=== PATIENT | female | born 1965 | race Caucasian/White ===

== ENCOUNTER 2017-10-17 19:54 | Emergency (ER) | payer BC, SELFPAY ==
[2017-10-17 20:30] VITALS: BP 154/85; PULSE 80; RESP 20; TEMP 36.8; O2SAT 96; BMI 39.5
--- NOTE | 2017-10-17 20:35 | HMH.EDUTC ---
[facility] Disposition Clinical Impression: Upper respiratory infection Qualifiers: URI type: unspecified URI Qualified Code(s): J06.9 - Acute upper respiratory infection, unspecified Disposition: Home, Self-Care Condition on Discharge: Good Instructions: Cough, DI for Nasal Congestion, DI for Sinusitis, Sinus Headache Additional Instructions: * Monitor Temp. Tylenol and/or Ibuprofen as needed. ER if fever is no less than 101 despite alternating Tylenol and Ibuprofen * Encourage fluids, water, Gatorade, powerade, pedialyte if /toddler/or child * Warm salt water gargles for throat irritation *Warm fluids *Sore throat lozenges *Sleep elevated *humidifier or vaporizer Lots of rest Increase fluids, water, Gatorade, powerade Follow up IMMEDIATELY for new or worsening of symptoms OR no noticeable improvement over the next 48-72 hours. 911 immediately for any life threatening symptoms such as chest pain or difficulty breathing Prescriptions: Brompheniramine/Pseudoephed/Dm [Bromfed DM Cough Syrup 5mL] 10 ml PO Q4H PRN #200 syrup PRN Reason: Cough Referrals: Provider,Referral, MD [Primary Care Provider] - Time of Disposition: 20:52 Medical Decision Making Vital Signs: 10/17/17 20:30 Temperature 98.2 F Temperature Source Temporal Artery Scan Pulse Rate [Right] 80 Respiratory Rate 20 Blood Pressure [Right Arm] 154/85 Blood Pressure Mean [Right Arm] 108 Blood Pressure Source [Right Arm] Automatic Cuff Blood Pressure Position [Right Arm] Sitting 02 Sat by Pulse Oximetry 96 Oxygen Delivery Method Room Air - Aniceto Inquiry Pt receiving controlled substance: No Aniceto was queried for this patient: No [facility] HPI - General Stated complaint: Cough, ZIMMERMAN, achey Mode of Arrival: Ambulatory Source of Information: Patient Limitations: No Limitations Description of Symptoms (Recalled from Triage Doc. 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 State that she thought she may be getting sick about a week or so ago with sinus infection but then symptoms went away and now they are back States that she has been having tenderness and pain under her eyes and feels like her teeth ache at times - Related Data Home Medications Medication Instructions Recorded Confirmed Pantoprazole Sodium [Pantoprazole 20 mg PO DAILY 10/17/17 10/17/17 20mg Tab] Previous Rx's Medication Instructions Recorded Brompheniramine/Pseudoephed/Dm 10 ml PO Q4H PRN #200 syrup 10/17/17 [Bromfed DM Cough Syrup 5mL] Allergies Allergy/AdvReac Type Severity Reaction Status Date / Time MORPHINE AdvReac Unknown MAKES ME Uncoded 10/17/17 20:36 CRAZY - Worker's Comp Is this a Worker's Comp case?: No [facility] History I have reviewed the patient's past medical history: Yes - *Social History Smoking Status: Current every day smoker Tobacco Type: cigarettes Alcohol Intake: never - Psychiatric History Expresses thoughts of harming self/others: None Suicide Plan Description: No Plan ROS Obtained: Yes All systems reviewed & no additional complaints Physical Exam - General General appearance: alert, in no apparent distress - Expanded ENT Exam Nose exam: Present: sinus tenderness Nasal speculum exam: Bilateral: other (Pain maxillary sinus with pressure feeling behind eyes) Comment: Throat red, irritated drainage noted in back of throat - Chest Chest inspection: Present: normal inspection, symmetric chest wall rise. Absent:
[2017-10-17 20:43] LABS: UTC Influenza A Antigen Negative (Negative); UTC Influenza B Antigen Negative (Negative)
--- NOTE | 2017-10-17 20:44 | ED_ITS ---
[facility] [place] Clinical Impression: Upper respiratory infection Qualifiers: URI type: unspecified URI Qualified Code(s): J06.9 - Acute upper respiratory infection, unspecified Disposition: Home, Self-Care Condition on Discharge: Good Instructions: Cough, DI for Nasal Congestion, DI for Sinusitis, Sinus Headache Additional Instructions: * Monitor Temp. Tylenol and/or Ibuprofen as needed. ER if fever is no less than 101 despite alternating Tylenol and Ibuprofen * Encourage fluids, water, Gatorade, powerade, pedialyte if /toddler/or child * Warm salt water gargles for throat irritation *Warm fluids *Sore throat lozenges *Sleep elevated *humidifier or vaporizer Lots of rest Increase fluids, water, Gatorade, powerade Follow up IMMEDIATELY for new or worsening of symptoms OR no noticeable improvement over the next 48-72 hours. 911 immediately for any life threatening symptoms such as chest pain or difficulty breathing Prescriptions: Brompheniramine/Pseudoephed/Dm [Bromfed DM Cough Syrup 5mL] 10 ml PO Q4H PRN # 200 syrup PRN Reason: Cough Referrals: Provider,Referral, MD [Primary Care Provider] - Time of Disposition: 20:52 Medical Decision Making Vital Signs: 10/17/17 20:30 Temperature 98.2 F Temperature Source Temporal Artery Scan Pulse Rate [Right] 80 Respiratory Rate 20 Blood Pressure [Right Arm] 154/85 Blood Pressure Mean [Right Arm] 108 Blood Pressure Source [Right Arm] Automatic Cuff Blood Pressure Position [Right Arm] Sitting 02 Sat by Pulse Oximetry 96 Oxygen Delivery Method Room Air - Aniceto Inquiry Pt receiving controlled substance: No Aniceto was queried for this patient: No [facility] HPI - General Stated complaint: Cough, ZIMMERMAN, achey Mode of Arrival: Ambulatory Source of Information: Patient Limitations: No Limitations Description of Symptoms (Recalled from Triage Doc. 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 State that she thought she may be getting sick about a week or so ago with sinus infection but then symptoms went away and now they are back States that she has been having tenderness and pain under her eyes and feels like her teeth ache at times - Related Data Home Medications Medication Instructions Recorded Confirmed Pantoprazole Sodium [Pantoprazole 20 mg PO DAILY 10/17/17 10/17/17 20mg Tab] Previous Rx's Medication Instructions Recorded Brompheniramine/Pseudoephed/Dm 10 ml PO Q4H PRN #200 syrup 10/17/17 [Bromfed DM Cough Syrup 5mL] Allergies Allergy/AdvReac Type Severity Reaction Status Date / Time MORPHINE AdvReac Unknown MAKES ME Uncoded 10/17/17 20:36 CRAZY - Worker's Comp Is this a Worker's Comp case?: No [facility] History I have reviewed the patient's past medical history: Yes - *Social History Smoking Status: Current every day sm
== END 2017-10-17 21:01 | disposition home or self-care (01) ==
PROVIDERS: Emergency Provider Nurse Practitioner
DX: J06.9 Acute upper respiratory infection, unspecified (principal); F17.210 Nicotine dependence, cigarettes, uncomplicated
CPT/HCPCS: 87804; 96372; 99202

== ENCOUNTER → 2018-07-04 13:21 | Outpatient (REF) | payer BC, SELFPAY ==
[2018-07-04 19:39] LABS: Basophils # 0.1 K/mm3 (0-0.2); Basophils % 0.7 % (0.1-2.0); Eosinophils # 0.3 K/mm3 (0.0-0.4); Eosinophils % 2.9 % (0.1-12.0); Hematocrit 43.6 % (37.0-47.0); Hemoglobin 14.2 g/dL (12.2-16.2); Lymphocytes # 1.6 K/mm3 (0.7-4.5); Lymphocytes % 18.2 K/mm3 (10-50); Mean Corpuscular HGB Conc 32.6 g/dL (31.8-35.4); Mean Corpuscular Hemoglobin 29.6 pg (27.0-31.2); Mean Corpuscular Volume 90.9 fl (81-99); Mean Platelet Volume 7.9 fl (7.4-10.4); Monocytes # 0.5 K/mm3 (0.1-1.0); Monocytes % 5.7 % (1.7-9.3); Neutrophils # 6.3 K/mm3 (1.8-7.8); Neutrophils % 72.6 % (37.0-80.0); Platelet Count 264 K/mm3 (142-424); Red Cell Distribution Width 13.3 % (11.5-17.5); White Blood Count 8.6 K/mm3 (4.8-10.8)
[2018-07-04 20:03] LABS: Alanine Aminotransferase 33 U/L (12-78); Albumin Level 3.8 gm/dL (3.4-5.0); Albumin/Globulin Ratio 1.1 (1.1-1.8); Alkaline Phosphatase 105 U/L (46-116); Anion Gap 4.7 mEq/L (5-15); Aspartate Amino Transferase 18 U/L (15-37); Bilirubin,Total 0.2 mg/dL (0.2-1.0); Blood Urea Nitrogen 12 mg/dL (7-18); Carbon Dioxide 29 mmol/L (21.0-32.0); Chloride 102 mmol/L (98-107); Chol/HDL Ratio 5.3 (1-3.5); Cholesterol 249 mg/dL (140-200); Creatinine,Serum 0.82 mg/dL (0.55-1.02); Estimated Glomerular Filt Rate 73 ml/min (>60); GFR (African American) 89 ML/MIN (>60); Globulin 3.4 gm/dl (1.3-3.2); Glucose 90 mg/dL (74-106); HDL Cholesterol 47 mg/dL (29-89); LDL Cholesterol 169 mg/dL (0-130); Potassium 3.7 mmoL/L (3.5-5.1); Sodium 132 mmol/L (136-145); T4 (Thyroxine) 9.2 ug/dl (4.7-13.3); Thyroid Stimulating Hormone 1.19 uIU/ml (0.358-3.740); Total Protein,Serum 7.2 gm/dL (6.4-8.2); Triglycerides 167 mg/dL (30-200); VLDL Cholesterol 33 mg/dL (0-40)
[2018-07-04 20:19] LABS: Hemoglobin A1C 5.6 % (0.0-7.0)
[2018-07-06 12:35] LABS: Vitamin D 25 Hydroxy 26.1 ng/mL (30.0-100.0)
== END ==
LOC: LAB 13:21
PROVIDERS: Visit Provider Physician Assistant
DX: R73.9 Hyperglycemia, unspecified (principal)
CPT/HCPCS: 80053; 80061; 82652; 83036; 84436; 84443; 85025

== ENCOUNTER → 2020-07-27 15:19 | Outpatient (CLI) | payer BC, SELFPAY ==
[2020-07-28 03:12] LABS: Adenovirus,PCR Not Detected (NotDetected); Bordetella Pertussis Not Detected (NotDetected); Chlamydophila Pneumoniae, PCR Not Detected (NotDetected); Coronavirus 19, PCR Not Detected (NotDetected); Coronavirus 229E Not Detected (NotDetected); Coronavirus NL63 Not Detected (NotDetected); Coronavirus OC43 Not Detected (NotDetected); Coronovirus HKU1,PCR Not Detected (NotDetected); Human Metapneumovirus Not Detected (NotDetected); Influenza A, PCR Not Detected (NotDetected); Influenza AH1, 2009 Not Detected (NotDetected); Influenza AH1, PCR Not Detected (NotDetected); Influenza AH3,PCR Not Detected (NotDetected); Influenza B, PCR Not Detected (NotDetected); Mycoplasma Pneumoniae, PCR Not Detected (NotDetected); Parainfluenza 1, PCR Not Detected (NotDetected); Parainfluenza 2, PCR Not Detected (NotDetected); Parainfluenza 3, PCR Not Detected (NotDetected); Parainfluenza 4, PCR Not Detected (NotDetected); Respiratory Syncytial Virus Not Detected (NotDetected); Rhinovirus/Enterovirus Not Detected (NotDetected)
== END ==
PROVIDERS: PCP Physician Assistant; Visit Provider Physician Assistant
DX: Z03.818 Encounter for observation for suspected exposure to other biological agents ruled out (principal)
CPT/HCPCS: 87581; 87633; 87798; U0003; U0004

== ENCOUNTER → 2020-10-21 13:22 | Outpatient (CLI) | payer BC, SELFPAY ==
--- NOTE | 2020-10-21 13:22 | MM_ITS ---
PROCEDURE: MM DIG SCREENING MAMM BI W/CAD Digital Breast Tomosynthesis Included CLINICAL INDICATION: Breast cancer screening There is no personal or family history of breast cancer. COMPARISON: Sign screening exam, patient without complaints TECHNIQUE: Standard CC and MLO images and 3D Tomosynthesis was obtained. R2 CAD reviewed. FINDINGS: The breasts are composed primarily of fat with minimal scattered fibroglandular densities throughout each breast. There is a benign-appearing calcification in each breast. There is no suspicious lesion and no suspicious microcalcifications. IMPRESSION: Fatty type breast parenchyma with no suspicious lesions seen BI-RAD Category: 2 Benign Finding(s) FOLLOW-UP: 1YR 1 Year Follow-up (A letter has been sent to the patient regarding results of the study.) Dictated by: Dr. Julito Abdul MD 10/30/2020 07:34 Dr. Julito Abdul MD in [place] 10/30/2020 07:34
--- NOTE | 2020-10-21 13:22 | US_ITS ---
PROCEDURE: US EXTREMITY LT LIMITED CLINICAL INDICATION: Mass left elbow COMPARISON: No exams were available for comparison FINDINGS: Ultrasound of the left elbow performed in the area palpable concern. No soft tissue mass or cystic collection evident. MRI may provide further evaluation if clinically warranted. IMPRESSION: Unremarkable ultrasound the left elbow Dictated by: John Chu MD 10/22/2020 07:16 John Chu MD in [facility] 10/22/2020 07:16
== END ==
PROVIDERS: PCP Physician Assistant; Visit Provider Physician Assistant
DX: Z12.31 Encounter for screening mammogram for malignant neoplasm of breast (principal); R22.32 Localized swelling, mass and lump, left upper limb
CPT/HCPCS: 76882; 77063; 77067

== ENCOUNTER 2020-12-21 11:00 | Outpatient (RCR) | payer BC, SELFPAY | END 2020-12-21 11:05 | disposition home or self-care (01) | LOC: OT 11:00 | PROVIDERS: PCP Physician Assistant; Visit Provider Physician Assistant | DX: M77.12 Lateral epicondylitis, left elbow (principal) | CPT/HCPCS: 97014; 97035; 97110; 97140; 97165; G0283 ==

== ENCOUNTER 2022-06-05 10:58 | Emergency (ER) | payer BC, SELFPAY ==
[2022-06-05 11:02] VITALS: BP 161/73; PULSE 79; RESP 20; TEMP 36.8; O2SAT 98; BMI 38.0
--- NOTE | 2022-06-05 11:16 | PC.NURSE ---
pt ambulating to the restroom for urine sample
[2022-06-05 11:27] VITALS: BP 114/74; PULSE 78; O2SAT 97
[2022-06-05 11:33] VITALS: BMI 38.0
--- NOTE | 2022-06-05 11:34 | CT_ITS ---
PROCEDURE INFORMATION: Exam: CT Abdomen And Pelvis Without Contrast Exam date and time: 06/05/2022 11:46 AM Age: 57 years old Clinical indication: Abdominal pain; Flank; Right lower quadrant (rlq); Additional info: R flank pain , stone protocol TECHNIQUE: Imaging protocol: Computed tomography of the abdomen and pelvis without contrast. Radiation optimization: All CT scans at this facility use at least one of these dose optimization techniques: automated exposure control; mA and/or kV adjustment per patient size (includes targeted exams where dose is matched to clinical indication); or iterative reconstruction. COMPARISON: US EXTREMITY LT LIMITED 10/21/2020 1:47 PM FINDINGS: Liver: Normal. No mass. Gallbladder and bile ducts: Cholecystectomy. Pancreas: Normal. No ductal dilation. Spleen: Calcified splenic granulomas. Adrenal glands: Normal. No mass. Kidneys and ureters: Horseshoe kidney. No hydronephrosis. No nephroureterolithiasis. Stomach and bowel: Unremarkable. No obstruction. No mucosal thickening. Appendix: No evidence of appendicitis. Intraperitoneal space: Unremarkable. No free air. No significant fluid collection. Vasculature: Unremarkable. No abdominal aortic aneurysm. Lymph nodes: Unremarkable. No enlarged lymph nodes. Urinary bladder: Unremarkable as visualized. Reproductive: Query a Bartholin gland cyst versus Monson gland cyst along the right aspect of the perineum. Bones/joints: Unremarkable. No acute fracture. Soft tissues: Unremarkable. IMPRESSION: No acute findings.
--- NOTE | 2022-06-05 11:37 | HMH.EDGENADL ---
Discharge Plan Disposition Patient Disposition: Home, Self-Care Condition: Good Chief Complaint: Back Pain/Injury Prescriptions Prescriptions: New ibuprofen 800 mg tablet 800 mg PO Q8HP PRN (Reason: moderate pain ) Qty: 15 0RF methocarbamol 750 mg tablet 750 mg PO Q6H Qty: 20 0RF prednisone 20 mg tablet 20 mg PO BID Qty: 10 0RF No Action pantoprazole 40 mg tablet,delayed release (DR/EC) 40 mg PO Label Comments: TAKE ONE TABLET BY MOUTH EVERY DAY 30 minutes BEFORE breakfast amoxicillin 875 mg tablet 875 mg PO BID Qty: 20 0RF prednisone 20 mg tablet 20 mg PO BID Qty: 10 0RF Rx Instructions: administer with food or milk Paxlovid (EUA) 300 mg (150 mg x 2)-100 mg tablet See Rx Instructions PO .COMPLEX Qty: 30 0RF Rx Instructions: take TWO 150 mg tablets of nirmatrelvir with ONE 100 mg tablet of ritonavir twice daily for 5 days PO Referrals Follow up/Referrals: Susan Poole PA [Primary Care Provider] - See instructions Activity Restrictions/Add. Instructions Additional Instructions/Restrictions: Additional instructions for BACK PAIN: See your physician as soon as possible for further evaluation. Return immediately if back pain becomes intolerable, or if fever, numbness or weakness of your legs, loss of control of your bowels or bladder. Clinical Impressions Clinical Impression: Low back pain Instructions Patient Instructions: DI for Low Back Pain Discharge ED Provider: Evan Dietrich General Adult HPI General Chief complaint: Back Pain/Injury Stated complaint: back pain, unknown origin Time Seen by Provider: 06/05/22 11:36 History of Present Illness HPI narrative: Complains of severe right lower back pain, onset this morning. Says that she can hardly get out of bed this morning. She was able to get up and make it to religion but pain got worse at that time associated with nausea. She had not had any urinary symptoms before coming to the emergency department, but states when she provided a urine sample here it was dark and it burned a little. The pain we does radiate into her abdomen. No radiation down the legs. No numbness or weakness. She states she does have some chronic back problems, and sees a chiropractor. Related Data Home Medications Medication Instructions Recorded Confirmed pantoprazole 40 mg tablet,delayed 40 mg PO 12/16/21 12/16/21 release Previous Rx's Medication Instructions Recorded amoxicillin 875 mg tablet 875 mg PO BID #20 tabs 12/16/21 prednisone 20 mg tablet 20 mg PO BID #10 tabs 12/16/21 nirmatrelvir 300 mg (150 mg x See Rx Instructions PO .COMPLEX 05/02/22 2)-ritonavir 100 mg tablet (EUA) #30 tabs (Paxlovid 300 mg () ibuprofen 800 mg tablet 800 mg PO Q8HP PRN moderate pain 06/05/22 #15 tabs methocarbamol 750 mg tablet 750 mg PO Q6H #20 tabs 06/05/22 prednisone 20 mg tablet 20 mg PO BID #10 tabs 06/05/22 Allergies Allergy/AdvReac Type Severity Reaction Status Date / Time MORPHINE AdvReac Unknown MAKES ME Uncoded 12/16/21 13:05 [facility] Medical History (Updated 06/05/22 @ 13:01 by Evan Dietrich MD) Abnormal weight Body mass index (BMI) of 40.1 to 44.9 in adult Nicotine dependence Obesity Social History Smoking Status: Current every day smoker tobacco type: cigarettes packs per day: 1 alcohol intake: current substance use type: denies use current occupational status: employed Travel in the last 8 weeks: None household members: spouse ROS Obtained: Yes Systems reviewed as appropriate & no additional complaints except as documented Constitutional Constitutional: Denies fever(s) and Denies weakness Cardiovascular Cardiovascular: Denies chest pain Respiratory Respiratory: Denies shortness of breath Gastrointestinal Gastrointestingal: Reports as per HPI and nausea Genitourinary Female Genitourinary: Reports as per HPI and Reports dysuria Muscul
--- NOTE | 2022-06-05 11:39 | PC.NURSE ---
DR BISHOP AT
--- NOTE | 2022-06-05 11:41 | CT_ITS ---
PROCEDURE INFORMATION: Exam: CT Lumbar Spine Without Contrast Exam date and time: 06/05/2022 11:49 AM Age: 57 years old Clinical indication: Low back pain and sciatica; Right TECHNIQUE: Imaging protocol: Computed tomography of the lumbar spine without contrast. Radiation optimization: All CT scans at this facility use at least one of these dose optimization techniques: automated exposure control; mA and/or kV adjustment per patient size (includes targeted exams where dose is matched to clinical indication); or iterative reconstruction. COMPARISON: CT ABDOMEN PELVIS WO CON 06/05/2022 11:46 AM FINDINGS: Bones/joints: No acute fracture or malalignment. There appears to be at least mild spinal canal stenosis at L4-L5. Mild to moderate bilateral neural foraminal stenosis at L4. Moderate to severe bilateral neural foraminal stenosis at L5-S1, right greater than left. Soft tissues: Unremarkable. IMPRESSION: 1. No acute fracture or malalignment. 2. Degenerative changes as detailed above.
[2022-06-05 11:51] LABS: Basophils # 0.2 K/mm3 (0-0.2); Basophils % 1.4 % (0.1-2.0); Eosinophils # 0.2 K/mm3 (0.0-0.4); Eosinophils % 1.9 % (0.1-12.0); Hematocrit 46.2 % (37.0-47.0); Hemoglobin 14.8 g/dL (12.2-16.2); Lymphocytes # 3.1 K/mm3 (0.7-4.5); Lymphocytes % 28.1 % (10-50); Mean Corpuscular Hemoglobin 30.2 pg (27.0-31.2); Mean Corpuscular Volume 94.5 fl (81-99); Mean Platelet Volume 8.2 fl (7.4-10.4); Microscopic, Urine URINE MICROSCOPIC (MICROSCOPIC); Monocytes # 0.7 K/mm3 (0.1-1.0); Neutrophils # 6.8 K/mm3 (1.8-7.8); Neutrophils % 62.7 % (37.0-80.0); Platelet Count 289 K/mm3 (142-424); Red Blood Count 4.89 M/mm3 (4.20-5.40); Red Cell Distribution Width 13.6 % (11.5-17.5); White Blood Count 10.9 K/mm3 (4.8-10.8)
[2022-06-05 11:55] LABS: Alanine Aminotransferase 24 U/L (12-78); Albumin Level 4.1 g/dl (3.5-5.0); Albumin/Globulin Ratio 1.2 (1.1-1.8); Alkaline Phosphatase 113 U/L (38-126); Anion Gap 7.5 mEq/L (5-15); Aspartate Amino Transferase 30 U/L (14-36); Blood Urea Nitrogen 10 mg/dl (7-17); Calcium 9.6 mg/dl (8.4-10.2); Carbon Dioxide 29 mmol/L (22.0-30.0); Chloride 106 mmol/L (98-107); Creatinine Clearance Estimated 141 mL/min (50-200); Estimated Glomerular Filt Rate 74 ml/min (>60); GFR (African American) 90 ML/MIN (>60); Globulin 3.3 g/dL (1.3-3.2); Glucose 97 mg/dl (74-100); Potassium 4.5 mmoL/L (3.5-5.1); Sodium 138 mmol/L (136-145); Total Protein,Serum 7.4 g/dl (6.3-8.2)
[2022-06-05 11:56] LABS: Appearance,Urine CLEAR (Clear); Bilirubin,Urine Negative (Negative); Blood, Urine Negative (Negative); Color,Urine YELLOW (Yellow); Glucose,Urine (UA) Negative (Negative); Ketones,Urine Negative (Negative); Leukocyte Esterase,Urine TRACE (Negative); Nitrate,Urine Negative (Negative); Protein,Urine Negative (Negative); Specific Gravity, Urine 1.025 (1.005-1.030); Urobilinogen,Urine 0.2 EU/dl (0.2)
--- NOTE | 2022-06-05 12:00 | PC.NURSE ---
PT BACK FROM CT
[2022-06-05 12:01] LABS: Bilirubin,Total < 0.1 mg/dl (0.2-1.3)
--- NOTE | 2022-06-05 12:03 | PC.NURSE ---
PAIN MUCH BETTER
[2022-06-05 12:19] LABS: Bacteria,Urine Trace /lpf; Squamous Epithelial Cell,Urine Occasional #/hpf (0-5); WBC,Urine Occasional #/hpf (0-3)
[2022-06-05 12:30] VITALS: BP 111/58; PULSE 74; O2SAT 95
[2022-06-05 13:10] VITALS: BP 122/62; PULSE 75; RESP 18; TEMP 36.8; O2SAT 99
== END 2022-06-05 13:10 | disposition home or self-care (01) ==
PROVIDERS: Emergency Provider Emergency Medicine; PCP Physician Assistant
DX: M54.50 Low back pain, unspecified (principal); R10.31 Right lower quadrant pain; R06.02 Shortness of breath; J91.8 Pleural effusion in other conditions classified elsewhere; R11.0 Nausea; G89.29 Other chronic pain; M85.80 Other specified disorders of bone density and structure, unspecified site; Q63.1 Lobulated, fused and horseshoe kidney; F17.210 Nicotine dependence, cigarettes, uncomplicated; E66.9 Obesity, unspecified; Z79.1 Long term (current) use of non-steroidal anti-inflammatories (NSAID); Z79.52 Long term (current) use of systemic steroids; Z79.899 Other long term (current) drug therapy; Z88.0 Allergy status to penicillin; Z68.41 Body mass index [BMI] 40.0-44.9, adult
CPT/HCPCS: 72131; 74176; 80053; 81001; 85025; 96361; 96374; 96375; 96376; 99285; J2405

== ENCOUNTER → 2022-07-26 11:44 | Outpatient (CLI) | payer BC, SELFPAY | PROVIDERS: PCP Physician Assistant; Visit Provider Physician Assistant | DX: J32.9 Chronic sinusitis, unspecified (principal); J06.9 Acute upper respiratory infection, unspecified; R52 Pain, unspecified | CPT/HCPCS: C9803; U0003; U0005 ==

== ENCOUNTER 2023-04-17 23:49 | Inpatient (IN) | payer BC, SELFPAY ==
[2023-04-17 23:50] VITALS: BP 142/87; PULSE 97; RESP 21; TEMP 36.7; O2SAT 97; BMI 38.0
--- NOTE | 2023-04-17 23:52 | ECG_ITS ---
APPROVED REPORT Exam: Resting ECG HR:78 bpm ECG Measurements Heart Rate 78 AXES MD 171 P 73 QRSd 97 QRS 81 QT 368 T 80 QTc 401 Conclusion SINUS RHYTHM WITH OCCASIONAL VENTRICULAR PREMATURE COMPLEXES MODERATE ST DEPRESSION [0.05+ mV ST DEPRESSION] ABNORMAL ECG UNCONFIRMED REPORT Electronically signed by : Eduard Otero MD 04/18/2023 07:53:45
[2023-04-17 23:54] VITALS: BMI 38.0
--- NOTE | 2023-04-17 23:56 | PC.NURSE ---
fred on phone with girma
--- NOTE | 2023-04-17 23:57 | PC.NURSE ---
STEMI Alert Activated
[2023-04-18] VITALS (22 sets, daily range): BP systolic 109–158; BP diastolic 62–94; PULSE 60–98; RESP 16–20; TEMP 36.6–36.7; O2SAT 92–100; BMI 40.9
--- NOTE | 2023-04-18 | PC.NURSE ---
SPOKE WITH [facility] AND GAIL.
--- NOTE | 2023-04-18 | XR_ITS ---
PROCEDURE INFORMATION: Exam: XR Chest Exam date and time: 04/17/2023 11:58 PM Age: 57 years old Clinical indication: Chest wall pain; Patient HX: Cp on arrival, stemi TECHNIQUE: Imaging protocol: Radiologic exam of the chest. Views: 1 view. COMPARISON: CT ABDOMEN PELVIS WO CON 06/05/2022 11:46 AM FINDINGS: Lungs: Unremarkable. No consolidation. The lung bases are not included in their entirety on this exam. Pleural spaces: Unremarkable. No pleural effusion. No pneumothorax. Heart/Mediastinum: Unremarkable. No cardiomegaly. Vasculature: Unremarkable. Bones/joints: Unremarkable. IMPRESSION: No acute findings. The lung bases are not included in their entirety on this exam.
[2023-04-18 00:08] LABS: Basophils # 0.1 K/mm3 (0-0.2); Basophils % 0.7 % (0.1-2.0); Eosinophils # 0.3 K/mm3 (0.0-0.4); Eosinophils % 2.8 % (0.1-12.0); Hematocrit 48.1 % (37.0-47.0); Hemoglobin 15.5 g/dL (12.2-16.2); Lymphocytes # 3.8 K/mm3 (0.7-4.5); Lymphocytes % 36.7 % (10-50); Mean Corpuscular HGB Conc 32.3 g/dL (31.8-35.4); Mean Corpuscular Hemoglobin 29.6 pg (27.0-31.2); Mean Corpuscular Volume 91.5 fl (81-99); Mean Platelet Volume 7.7 fl (7.4-10.4); Monocytes # 0.6 K/mm3 (0.1-1.0); Monocytes % 5.8 % (1.7-9.3); Neutrophils # 5.6 K/mm3 (1.8-7.8); Neutrophils % 54.1 % (37.0-80.0); Platelet Count 235 K/mm3 (142-424); Red Blood Count 5.25 M/mm3 (4.20-5.40); Red Cell Distribution Width 13.6 % (11.5-17.5); White Blood Count 10.3 K/mm3 (4.8-10.8)
[2023-04-18 00:12] LABS: Chloride 103 mmol/L (98-107); Potassium 3.4 mmoL/L (3.5-5.1); Sodium 139 mmol/L (136-145)
[2023-04-18 00:15] LABS: Anion Gap 11.4 mEq/L (5-15); Blood Urea Nitrogen 12 mg/dl (7-17); Calcium 9.1 mg/dl (8.4-10.2); Carbon Dioxide 28 mmol/L (22.0-30.0); Creatinine Clearance Estimated 125 mL/min (50-200); Estimated Glomerular Filt Rate 65 ml/min (>60); GFR (African American) 78 ML/MIN (>60); Glucose 124 mg/dl (74-100)
--- NOTE | 2023-04-18 00:21 | PC.NURSE ---
Pt to [address] via stretcher. mixing and dispensing supervisor Ute Calix RN, Sabrina west RN, and Leonardo Colvin EMT at bedside with Zoll monitor in place. Pt's belonging on bed. accompanying staff to [address].
--- NOTE | 2023-04-18 00:21 | PC.NURSE ---
Dr. Contreras called and stated ok to bring pt to [facility]
--- NOTE | 2023-04-18 00:22 | IR_ITS ---
APPROVED REPORT Patient Location: Emergent Busgirl: TRES Reyes RT (R) PROCEDURES Selective coronary angiogram Drug-eluting stent deployment to the mid dominant circumflex artery INDICATION Acute inferolateral ST elevation myocardial infarction, Coronary artery disease Informed consent was obtained prior to the procedure. COMPLICATIONS None Estimated Blood Loss: Less than 10 ML TECHNIQUE One percent lidocaine used to anesthetize the right anterior aspect of the wrist. The right radial artery was accessed via the Seldinger technique. A 6 [place] sheath was placed in the right radial artery. 150 mg magnesium sulfate, 800 mcg of nitroglycerin, 1mg Lidocaine were given through the arterial sheath. The papa catheter was also used to perform selective coronary angiography. The guide catheter was placed in left main artery followed by Choice PT extra-support wire into the large obtuse marginal artery. A 3 mm x 26 mm Mandeep frontier stent was deployed at 12 li reducing the stenosis to 0%. There was a distal stepdown demonstrating persistent disease therefore an additional 3 mm x 12 mm Mandeep frontier stent was then placed distal to the for stent yet still overlapping it and deployed at 12 li. LUPE-3 flow was present before and after the procedure. At the end the procedure the apparatus was removed the sheath was removed good hemostasis was achieved and TR banding patient was transferred to the postop holding in stable condition ANGIOGRAPHIC RESULTS The left main artery Normal The left anterior descending artery Has a proximal eccentric 30% stenosis with mid vessel 20% stenoses The circumflex artery Large dominant with a 90% occlusion in the mid first obtuse marginal artery accompanied by a large thrombus The right coronary artery Vestigial normal The ACOSTA ventriculogram reveals Not performed The left ventricular end-diastolic pressure Not measured IMPRESSION Acute ST elevation myocardial infarction involving the inferior lateral segment supplied by the dominant circumflex artery with successful percutaneous stenting reducing the stenosis to 0% with 2 contiguous drug-eluting stents Persistent proximal mild to moderate LAD disease as described above PLAN 1. Brilinta 90 twice daily plus aspirin 81 mg daily 2. Lipitor 80 mg daily to achieve LDL less than 55 3. Start low-dose beta-blockers and HERRERA inhibitors once hemodynamically stable 4. Avoidance of tobacco products 5. Cardiac rehabilitation 6. Continuous telemetry monitoring for 48 hours 7. Echocardiogram Electronically signed by : Fabián Contreras MD 04/18/2023 00:52:33
--- NOTE | 2023-04-18 00:23 | HMH.EDCP ---
Discharge Plan Disposition Patient Disposition: Admitted Chief Complaint: Chest Pain Clinical Impressions Clinical Impression: ST elevation myocardial infarction (STEMI) Discharge ED Provider: Karmen GUZMAN)Miguel Chest Pain HPI General Chief Complaint: Chest Pain Stated Complaint: CP Time Seen by Provider: 04/18/23 00:00 Mode of Arrival: Family Vehicle Source of Information: Patient, Spouse and Medical Record Limitations: No Limitations Description of Symptoms (Recalled from ER Triage Doc. by RN): Pt c/o anterior chest pain and back pain that radiates into bilateral sides of her neck and back of her arms. States it began 2 night agoi after working in the yard . She reports the pain does not worsen or decrease with any position. She also reports episodes of nausea and diaphoresis. No know cardiac hx. She does smoke. 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 History of Present Illness HPI narrative: acute ant chest pain to jaw tonight and last pm MD complaint: chest pain indicative of cardiac Onset (ago): hour(s) Duration: constant Activity at onset: during rest Pain location: left chest Severity: severe Quality: tightness Pain radiation: jaw/teeth Risk Factors for CAD: Family Hx of CAD and Smoking Treatments prior to or on arrival for Cardiac Chest Pain: none ANDRES Score for Stemi Age of Patient: 50-59 years old Heart Rate: 90-109 bpm Systolic Blood Pressure: 140-159 mmHg Serum Creatinine: 0.80-1.19 mg/dl CHF Killip Class: I-No CHF Other Risk Factors: Elevated Cardiac Enzymes or Biomarkers Stemi Risk Score: 101 Related Data On Oral Contraceptives: No Home Medications Medication Instructions Recorded Confirmed famotidine 20 mg tablet 20 mg PO DAILY gerd 04/18/23 04/18/23 ibuprofen 200 mg tablet 600 mg PO TIDP PRN Pain 04/18/23 04/18/23 Allergies Allergy/AdvReac Type Severity Reaction Status Date / Time MORPHINE AdvReac Unknown MAKES ME Uncoded 11/10/22 09:57 [facility] Disclaimer: The information contained in this section may have been updated after the patient was seen, as this information can be updated by other users. Medical History Abnormal weight Body mass index (BMI) of 40.1 to 44.9 in adult Nicotine dependence Obesity Social History Smoking Status: Current every day smoker tobacco type: cigarettes packs per day: 1 alcohol intake: current substance use type: denies use current occupational status: employed Travel in the last 8 weeks: None household members: spouse ROS Obtained: Yes All systems reviewed & no additional complaints except as documented Physical Exam General General appearance: alert Head Head exam: normocephalic Eye Eye exam: Present PERRL and EOMI ENT ENT exam: Present mucous membranes moist Neck Neck exam: Present trachea midline Respiratory Respiratory exam: Absent respiratory distress Cardiovascular Cardiovascular exam: Present regular rate and systolic murmur Abdominal Exam Abdominal exam: Present soft Extremities Exam Extremities exam: Present full ROM Neurological Exam Neurological exam: Present alert and CN II-XII intact; Absent motor sensory deficit Psychiatric Psychiatric exam: Present normal affect Skin Skin exam: Absent rash Medical Decision Making Medical Records Medical records reviewed: Yes I reviewed the patient's medical records. Aniceto Inquiry Pt receiving controlled substance: No Vital Signs: 04/17/23 23:50 04/18/23 00:34 Temperature 98.0 F 98.0 F Temperature Source Oral Oral Pulse Rate 98 H Pulse Rate [Right] 97 H Respiratory Rate 21 16 Blood Pressure 147/81 H Blood Pressure [Right Arm] 142/87 H Blood Pressure Mean [Right Arm] 105 Blood Pressure Source [Right Arm] Automatic Cuff 02 Sat by Pulse Oximetry 97 Oxygen Delivery Method Room Air Lab Data La
[2023-04-18 00:29] LABS: Alanine Aminotransferase 29 U/L (12-78); Albumin Level 4.7 g/dl (3.5-5.0); Alkaline Phosphatase 113 U/L (38-126); Aspartate Amino Transferase 46 U/L (14-36); Bilirubin,Direct 0.3 mg/dl (0.0-0.4); Bilirubin,Total 0.3 mg/dl (0.2-1.3); Chol/HDL Ratio 4.9 (1-3.5); Cholesterol 293 mg/dl (140-200); HDL Cholesterol 60 mg/dl (40-60); Total Protein,Serum 8.2 g/dl (6.3-8.2); Triglycerides 255 mg/dl (30-150); VLDL Cholesterol 51 mg/dL (0-40)
[2023-04-18 00:36] LABS: Troponin I 0.97 ng/ml (0.00-0.034)
--- NOTE | 2023-04-18 00:36 | PC.NURSE ---
notified MD of trop 0.97 also notified Hospitalist
[2023-04-18 00:41] LABS: Direct LDL Cholesterol 148.63 mg/dL (100-129)
[2023-04-18 00:59] LABS: CATHL Activated Clotting Time > 400 SEC (74-125)
--- NOTE | 2023-04-18 01:20 | PC.NURSE ---
PT ARRIVED TO FLOOR AT THIS TIME
--- NOTE | 2023-04-18 01:42 | EXP.HP ---
History of Present Illness *Admission Date: 04/18/23 *Reason for visit:: STEMI *History of present illness: 57 year old female presents to the ED for c/o CP that has occurred for two days. The pain is described as a band squeezing her around her chest and back. PMHX of tobacco abuse and GERD. Pt's father has hx of CAD and diabetes. Denies any nausea or vomiting. A code STEMI was called in the ED. The patient's EKG demonstrated ST elevation and her first troponin was 0.97. Her chest xray is unremarkable. The ED physician called Dr. Contreras for emergent cardiac cath and PCI. The hospitalist team was called for admission. The patient was admitted for further medical management s/p cardiac PCI. In the ED the patient received 324 aspirin, 180mg of ticagrelor, and heparin. The patient received 2 drug eluting stents to the mid dominant circumflex artery. The right radial artery was accessed for the procedure. The patient arrives to the medical floor s/p PCI and is hemodynamically stable. She will be started on Brilinta 90 mg BID, Lipitor 80 mg daily, Aspirin 81mg daily, and Bisoprolol 5mg daily. Remain on cardiac monitoring for 48 hours, consult for cardiac rehab, and have an cardiac echo in the morning. [facility] Disclaimer: The information contained in this section may have been updated after the patient was seen, as this information can be updated by other users. Medical History Abnormal weight Body mass index (BMI) of 40.1 to 44.9 in adult Nicotine dependence Obesity Family History (Updated 04/18/23 @ 01:47 by Gem Thomas RN) Other Family history of cardiomyopathy Family history of colon cancer Family history of diabetes mellitus (DM) Family history of heart disease Family history of hypertension Social History (Updated 04/18/23 @ 01:47 by Gem Thomas RN) Smoking Status: Current every day smoker tobacco type: cigarettes packs per day: 1 alcohol intake: current substance use type: denies use current occupational status: employed Travel in the last 8 weeks: None household members: spouse Review of Systems Review of Systems Review of systems:: pertinent systems reviewed and negative unless documented below Constitutional Constitutional: Reports system reviewed and no additional complaints, except as documented Eyes Eyes: Reports system reviewed and no additional complaints, except as documented ENT Ears, Nose, Mouth, and Throat: Reports system reviewed and no additional complaints, except as documented *Cardiovascular Cardiovascular: Reports chest pain and Reports chest pain at rest *Respiratory Respiratory: Reports system reviewed and no additional complaints, except as documented *Gastrointestinal Gastrointestinal: Reports system reviewed and no additional complaints, except as documented *Genitourinary Genitourinary: Reports system reviewed and no additional complaints, except as documented *Musculoskeletal Musculoskeletal: Reports back pain Integumentary/Breasts Skin/Breast: Reports system reviewed and no additional complaints, except as documented *Neurologic Neurologic: Reports system reviewed and no additional complaints, except as documented Psychiatric Psychiatric: Reports system reviewed and no additional complaints, except as documented Meds Home Medications and Allergies Home Medications Medication Instructions Recorded Confirmed Type famotidine 20 mg tablet 20 mg PO DAILY Acid Reflux 04/18/23 04/18/23 History ibuprofen 200 mg tablet 600 mg PO TIDP PRN Pain 04/18/23 04/18/23 History omega-3 fatty acids-vitamin E 1,000 cap PO DAILY Cholesterol 04/18/23 04/18/23 History 1,000 mg capsule omeprazole 20 mg capsule,delayed 20 mg PO DAILY Acid Reflux 04/18/23 04/18/23 History release New Prescriptions to Start Prescriptions: Allergies Allergy/AdvReac Type Severity Reaction Status Date / Time MORPHINE AdvReac Unknown MAKES ME Unc
--- NOTE | 2023-04-18 03:37 | PC.NURSE ---
critical troponin of 13.5 reported by lab, name and verified. MARGARITO Verduzco notified, no new orders at this time.
[2023-04-18 05:47] LABS: Basophils # 0.1 K/mm3 (0-0.2); Basophils % 0.6 % (0.1-2.0); Eosinophils # 0.1 K/mm3 (0.0-0.4); Eosinophils % 0.9 % (0.1-12.0); Hematocrit 39.9 % (37.0-47.0); Hemoglobin 13.2 g/dL (12.2-16.2); Lymphocytes # 2.4 K/mm3 (0.7-4.5); Lymphocytes % 24.2 % (10-50); Mean Corpuscular HGB Conc 33.1 g/dL (31.8-35.4); Mean Corpuscular Hemoglobin 29.6 pg (27.0-31.2); Mean Corpuscular Volume 89.4 fl (81-99); Mean Platelet Volume 7.6 fl (7.4-10.4); Monocytes # 0.7 K/mm3 (0.1-1.0); Monocytes % 6.7 % (1.7-9.3); Neutrophils # 6.7 K/mm3 (1.8-7.8); Neutrophils % 67.7 % (37.0-80.0); Platelet Count 230 K/mm3 (142-424); Red Blood Count 4.46 M/mm3 (4.20-5.40); Red Cell Distribution Width 13.5 % (11.5-17.5); White Blood Count 9.9 K/mm3 (4.8-10.8)
--- NOTE | 2023-04-18 07:16 | HMH.PHAINT1 ---
Pharmacy Intervention Comments: home medication list verified using list from [facility] and pt interview
--- NOTE | 2023-04-18 07:16 | PC.NURSE ---
critical troponin of 24.3 reported by lab, name and verified. MD Colvin notified, no new orders at this time.
--- NOTE | 2023-04-18 07:30 | PC.NURSE ---
telfa and tegaderm applied to right radial surgical site. CDI.
[2023-04-18 07:49] LABS: Chol/HDL Ratio 4.2 (1-3.5); Cholesterol 197 mg/dl (140-200); HDL Cholesterol 47 mg/dl (40-60); Triglycerides 179 mg/dl (30-150); VLDL Cholesterol 36 mg/dL (0-40)
[2023-04-18 07:54] LABS: Alanine Aminotransferase 34 U/L (12-78); Albumin Level 3.3 g/dl (3.5-5.0); Albumin/Globulin Ratio 1.3 (1.1-1.8); Alkaline Phosphatase 94 U/L (38-126); Anion Gap 9.2 mEq/L (5-15); Aspartate Amino Transferase 132 U/L (14-36); Bilirubin,Total 0.3 mg/dl (0.2-1.3); Blood Urea Nitrogen 13 mg/dl (7-17); Calcium 8.7 mg/dl (8.4-10.2); Carbon Dioxide 24 mmol/L (22.0-30.0); Chloride 108 mmol/L (98-107); Creatinine Clearance Estimated 174 mL/min (50-200); Estimated Glomerular Filt Rate 87 ml/min (>60); GFR (African American) 105 ML/MIN (>60); Globulin 2.5 g/dL (1.3-3.2); Glucose 113 mg/dl (74-100); Potassium 4.2 mmoL/L (3.5-5.1); Sodium 137 mmol/L (136-145); Total Protein,Serum 5.8 g/dl (6.3-8.2)
--- NOTE | 2023-04-18 07:54 | HMH.PHAINT1 ---
Pharmacy Intervention Comments: HOME MEDICATION LIST VERIFIED AFTER PT INTERVIEW
[2023-04-18 08:00] LABS: Direct LDL Cholesterol 119.99 mg/dL (100-129)
--- NOTE | 2023-04-18 09:27 | EXP.CARD.CON ---
History of Present Illness History of Present Illness Consult date: 04/18/23 Requesting physician: Manny Sadler Consult reason: chest pain Chief complaint: stemi History of present illness: History from Primary Service: 57 year old female presents to the ED for c/o CP that has occurred for two days. The pain is described as a band squeezing her around her chest and back. PMHX of tobacco abuse and GERD. Pt's father has hx of CAD and diabetes. Denies any nausea or vomiting. A code STEMI was called in the ED. The patient's EKG demonstrated ST elevation and her first troponin was 0.97. Her chest xray is unremarkable. The ED physician called Dr. Contreras for emergent cardiac cath and PCI. The hospitalist team was called for admission. The patient was admitted for further medical management s/p cardiac PCI. In the ED the patient received 324 aspirin, 180mg of ticagrelor, and heparin. The patient received 2 drug eluting stents to the mid dominant circumflex artery. The right radial artery was accessed for the procedure. The patient arrives to the medical floor s/p PCI and is hemodynamically stable. She will be started on Brilinta 90 mg BID, Lipitor 80 mg daily, Aspirin 81mg daily, and Bisoprolol 5mg daily. Remain on cardiac monitoring for 48 hours, consult for cardiac rehab, and have an cardiac echo in the morning. Cardiology note: Patient doing well this morning. Continues to have mild chest pain and increased shortness of breath. Morning labs reviewed. Preliminary echo shows a normal ejection fraction, official echo read is pending [facility] Disclaimer: The information contained in this section may have been updated after the patient was seen, as this information can be updated by other users. Medical History Abnormal weight Body mass index (BMI) of 40.1 to 44.9 in adult Nicotine dependence Obesity Family History (Updated 04/18/23 @ 01:47 by Gem Thomas RN) Other Family history of cardiomyopathy Family history of colon cancer Family history of diabetes mellitus (DM) Family history of heart disease Family history of hypertension Social History (Updated 04/18/23 @ 01:47 by Gem Thomas RN) Smoking Status: Current every day smoker tobacco type: cigarettes packs per day: 1 alcohol intake: current substance use type: denies use current occupational status: employed Travel in the last 8 weeks: None household members: spouse Review of Systems *Cardiovascular Cardiovascular: Reports chest pain and Reports dyspnea on exertion *Respiratory Respiratory: Reports dyspnea on exertion *Neurologic Neurologic: Reports system reviewed and no additional complaints, except as documented Exam Data for Last 24 hours Vital signs and Labs for Last 24 Hours: Temp Pulse Resp BP Pulse Ox O2 Del Method 98.0 F 60 20 140/78 95 Room Air 04/18/23 00:34 04/18/23 08:00 04/18/23 06:15 04/18/23 06:15 04/18/23 06:15 04/18/23 06:33 Laboratory Results - last 24 hr 04/17/23 00:00: WBC 10.3, RBC 5.25, Hgb 15.5, Hct 48.1 H, MCV 91.5, MCH 29.6, MCHC 32.3, RDW 13.6, Plt Count 235, MPV 7.7, Neut % (Auto) 54.1, Lymph % (Auto) 36.7, [place] % (Auto) 5.8, Eos % (Auto) 2.8, Baso % (Auto) 0.7, Neut # (Auto) 5.6, Lymph # (Auto) 3.8, [place] # (Auto) 0.6, Eos # (Auto) 0.3, Baso # (Auto) 0.1, Sodium 139, Potassium 3.4 L, Chloride 103, Carbon Dioxide 28, Anion Gap 11.4, BUN 12, Creatinine 0.90, Estimated Creat Clear 125, Estimated GFR 65, Est GFR ( Amer) 78, Glucose 124 H, Calcium 9.1, Troponin I 0.97 H 04/18/23 00:00: Total Bilirubin 0.3, Direct Bilirubin 0.3, Conjugated Bilirubin 0.0, Indirect Bilirubin 0.0, Unconjugated Bilirubin 0.0, AST 46 H, ALT 29, Alkaline Phosphatase 113, Total Protein 8.2, Albumin 4.7, Triglycerides 255 H, Cholesterol 293 H, LDL Cholesterol Direct 148.63 H, VLDL Cholesterol 51 H, HDL Cholesterol 60, Cholesterol/HDL Ratio 4.9 H 04/18/23 00:20: Activated Clotting Ti
--- NOTE | 2023-04-18 11:47 | PC.NURSE ---
Courtesy Round Patient awake and up in chair waiting on lunch. Bed straightened and assisted patient with changing into a better gown. Trash and linens emptied . Patient voiced no other needs at this time. call light within reach
[2023-04-19] VITALS (7 sets, daily range): BP systolic 121–133; BP diastolic 57–74; PULSE 58–70; RESP 16–18; TEMP 36.6–36.7; O2SAT 94–97; BMI 40.9
--- NOTE | 2023-04-19 08:39 | EXP.CARD.PN ---
Subjective Subjective Date: 04/19/23 Time: 08:00 Principal diagnosis: STEMI Interval history: Patient remained stable. Denies any chest pain or shortness of breath. No events reported over the evening. Exam Data for Last 24 hours Vital signs and Labs for Last 24 Hours: Temp Pulse Resp BP Pulse Ox O2 Del Method 97.9 F 68 18 133/64 95 Room Air 04/19/23 07:44 04/19/23 07:44 04/19/23 07:44 04/19/23 07:44 04/19/23 07:44 04/19/23 08:00 I & O for Last 24 hours: Intake & Output 04/16/23 04/17/23 04/18/23 04/19/23 23:59 23:59 23:59 23:59 Intake Total 720 / 720 240 / 240 Output Total 151 / 151 0 / 0 Balance 569 / 569 240 / 240 Weight 250 lb 270 lb 2 oz 270 lb 2.012 oz Constitutional Constitutional: no acute distress *Routine Respiratory Exam Respiratory: Present CTA bilaterally and symmetric chest movement *Routine Cardiovascular Exam Cardiovascular: Present RRR, Normal S1 and Normal S2 *Routine Abdominal Exam Abdominal: Present soft and normoactive bowel sounds; Absent tenderness *Routine Extremities Exam Extremities: Present full ROM and normal capillary refill; Absent edema *Routine Skin Exam Skin: Present intact, dry and warm Detailed Neck Exam: Thyroids Thyroid: Absent bruit Progress Note: A&P Assessment and plan (1) ST elevation myocardial infarction (STEMI): Status: Acute (2) CAD (coronary artery disease): Status: Acute (3) HLD (hyperlipidemia): Status: Acute (4) GERD (gastroesophageal reflux disease): Status: Acute (5) Nicotine dependence: Status: Chronic (6) Obesity: Status: Chronic Assessment and Plan Assessment and Plan for All Diagnoses:: Coronary artery disease STEMI -Status post left heart cath 04/17/2023 with CAROLA to dominant circumflex. Please continue aspirin 81 mg p.o. daily. We will switch Brilinta to Plavix due to increased shortness of breath. Continue atorvastatin. Add low-dose lisinopril. -Preliminary echo report shows a normal ejection fraction. Official read is pending Hyperlipidemia -LDL goal less than 55. Continue high-dose statin Tobacco use -Smoking cessation advised 04/19/2023: Continue to monitor patient status post STEMI for 48 hours. Official echo read is pending. Patient remains stable Cardiac meds Aspirin 81 mg p.o. daily Plavix 75 mg p.o. daily Atorvastatin 80 mg p.o. daily Lisinopril 2.5 mg p.o. daily Bisoprolol 5 mg p.o. daily
--- NOTE | 2023-04-19 09:28 | EXP.PN ---
Subjective *Date: 04/19/23 *Time: 09:28 Exam Data for Last 24 hours Vital signs and Labs for Last 24 Hours: Temp Pulse Resp BP Pulse Ox O2 Del Method 97.9 F 70 18 133/64 95 Room Air 04/19/23 07:44 04/19/23 08:00 04/19/23 07:44 04/19/23 07:44 04/19/23 07:44 04/19/23 08:00 I & O for Last 24 hours: Intake & Output 04/16/23 04/17/23 04/18/23 04/19/23 23:59 23:59 23:59 23:59 Intake Total 720 / 720 240 / 240 Output Total 151 / 151 0 / 0 Balance 569 / 569 240 / 240 Weight 113.398 kg 122.527 kg 122.527 kg Assessment and Plan *Assessment and plan Plan I will order a CBC and BMP for tomorrow morning.
--- NOTE | 2023-04-19 12:08 | EXP.DC.SUM ---
General Admission date:: 04/18/23 Discharge date: 04/19/23 HPI HPI HPI: 57 year old female presents to the ED for c/o CP that has occurred for two days. The pain is described as a band squeezing her around her chest and back. PMHX of tobacco abuse and GERD. Pt's father has hx of CAD and diabetes. Denies any nausea or vomiting. A code STEMI was called in the ED. The patient's EKG demonstrated ST elevation and her first troponin was 0.97. Her chest xray is unremarkable. The ED physician called Dr. Contreras for emergent cardiac cath and PCI. The hospitalist team was called for admission. The patient was admitted for further medical management s/p cardiac PCI. In the ED the patient received 324 aspirin, 180mg of ticagrelor, and heparin. The patient received 2 drug eluting stents to the mid dominant circumflex artery. The right radial artery was accessed for the procedure. The patient arrives to the medical floor s/p PCI and is hemodynamically stable. She will be started on Brilinta 90 mg BID, Lipitor 80 mg daily, Aspirin 81mg daily, and Bisoprolol 5mg daily. Remain on cardiac monitoring for 48 hours, consult for cardiac rehab, and have an cardiac echo in the morning. Hospital Course Hospital Course Hospital Course: The patient had a left cardiac catheterization for an acute STEMI involving the inferior lateral segment supplied by the dominant circumflex artery with successful percutaneous stenting reducing the stenosis to 0% with 2 contiguous drug-eluting stents. The patient was started on many new medications. By the day of discharge she was chest pain free. She will need to follow up with Cardiology and her PCP in 1 week. Exam Data for Last 24 hours Vital signs and Labs for Last 24 Hours: Temp Pulse Resp BP Pulse Ox O2 Del Method 97.9 F 58 L 17 123/57 L 94 L Room Air 04/19/23 11:04/19/23 11:06 04/19/23 11:04/19/23 11:04/19/23 11:04/19/23 11:06 I & O for Last 24 hours: Intake & Output 04/16/23 04/17/23 04/18/23 04/19/23 23:59 23:59 23:59 23:59 Intake Total 720 / 720 240 / 240 Output Total 151 / 151 0 / 0 Balance 569 / 569 240 / 240 Weight 113.398 kg 122.527 kg 122.527 kg Constitutional Constitutional: no acute distress *Routine HEENT Exam Head: Present normocephalic Eye: Present EOMI and PERRL ENT: Present mucous membranes moist *Routine Neck Exam Neck: Present supple; Absent lymphadenopathy *Routine Respiratory Exam Respiratory: Present CTA bilaterally *Routine Cardiovascular Exam Cardiovascular: Present RRR *Routine Abdominal Exam Abdominal: Present soft and normoactive bowel sounds; Absent tenderness *Routine Extremities Exam Extremities: Absent cyanosis, clubbing or edema *Routine Skin Exam Skin: Present warm; Absent rash *Routine Neurological Exam Neurological: Present alert and oriented X3 Results Data Completed and Pending Completed studies during hospitalization [Text1]: ANGIOGRAPHIC RESULTS The left main artery Normal The left anterior descending artery Has a proximal eccentric 30% stenosis with mid vessel 20% stenoses The circumflex artery Large dominant with a 90% occlusion in the mid first obtuse marginal artery accompanied by a large thrombus The right coronary artery Vestigial normal The [place] ventriculogram reveals Not performed The left ventricular end-diastolic pressure Not measured Pending studies at discharge: Echocardiogram final report is pending DS: Diagnosis Discharge Diagnosis (1) ST elevation myocardial infarction (STEMI): Status: Acute Code(s): I21.3 - ST elevation (STEMI) myocardial infarction of unspecified site Qualifiers: Involved coronary artery: left circumflex coronary artery Qualified Code(s): I21.21 - ST elevation (STEMI) myocardial infarction involving left circumflex coronary artery (2) CAD (coronary artery disease): Status: Acute Code(s): I25.10 - Atherosclerotic heart disease of [place] coronary
--- NOTE | 2023-04-19 13:55 | DIET.NUTRFU ---
Saw patient during meal rounds post lunch. She was eating food from outside facility. Currently on cardiac diet and reviewed verbally foods that should limited or avoided. She seemed receptive and knows what diet changes she needs needs to make. She declined handout
--- NOTE | 2023-04-20 13:19 | CARE MANAGER ---
Contacted patient related to hospital discharge. She picked up all her medications and is aware of follow up appointments. We discussed tobacco cessation and weight loss. Patient is actively working on this. PATRICK Christianson
== END 2023-04-19 13:30 | disposition home or self-care (01) | DRG 247 ==
LOC: ER 23:52 → 2ND 04-18 01:11 → CATHLAB 04-18 02:00 → 2ND 04-18 07:28
PROVIDERS: Internal Medicine; Nurse Practitioner Critical Care Medicine; Admitting Provider Internal Medicine Adolescent Medicine; Emergency Provider Emergency Medicine; PCP Physician Assistant; Visit Provider Internal Medicine Adolescent Medicine
PROC: 027035Z Dilation of Coronary Artery, One Artery with Two Drug-eluting Intraluminal Devices, Percutaneous Approach (ICD-10-PCS; principal; 2023-04-18 00:20)
DX: I21.19 ST elevation (STEMI) myocardial infarction involving other coronary artery of inferior wall (principal); Z68.41 Body mass index [BMI] 40.0-44.9, adult; I25.10 Atherosclerotic heart disease of native coronary artery without angina pectoris; E78.5 Hyperlipidemia, unspecified; K21.9 Gastro-esophageal reflux disease without esophagitis; F17.210 Nicotine dependence, cigarettes, uncomplicated; E66.9 Obesity, unspecified; Z72.0 Tobacco use; Z71.6 Tobacco abuse counseling
CPT/HCPCS: 71045; 80048; 80053; 80061; 80076; 84484; 85025; 85347; 92941; 93005; 93306; 93458; 99152; 99285; C1725; C1760; C1769; C1876; C9606; J1644; Q9967

== ENCOUNTER → 2023-04-25 08:33 | Outpatient (CLI) | payer BC, SELFPAY ==
[2023-04-25 08:50] LABS: Basophils # 0.1 K/mm3 (0-0.2); Basophils % 0.6 % (0.1-2.0); Eosinophils # 0.2 K/mm3 (0.0-0.4); Hemoglobin 15.2 g/dL (12.2-16.2); Lymphocytes # 2.5 K/mm3 (0.7-4.5); Lymphocytes % 25.6 % (10-50); Mean Corpuscular Hemoglobin 29.9 pg (27.0-31.2); Mean Corpuscular Volume 90.5 fl (81-99); Mean Platelet Volume 7.8 fl (7.4-10.4); Monocytes # 0.7 K/mm3 (0.1-1.0); Neutrophils # 6.4 K/mm3 (1.8-7.8); Neutrophils % 64.8 % (37.0-80.0); Platelet Count 250 K/mm3 (142-424); Red Blood Count 5.08 M/mm3 (4.20-5.40); Red Cell Distribution Width 13.3 % (11.5-17.5); White Blood Count 9.8 K/mm3 (4.8-10.8)
[2023-04-25 09:59] LABS: Anion Gap 12.6 mEq/L (5-15); Blood Urea Nitrogen 10 mg/dl (7-17); Calcium 9.2 mg/dl (8.4-10.2); Carbon Dioxide 25 mmol/L (22.0-30.0); Chloride 104 mmol/L (98-107); Estimated Glomerular Filt Rate 74 ml/min (>60); GFR (African American) 90 ML/MIN (>60); Glucose 101 mg/dl (74-100); Potassium 4.6 mmoL/L (3.5-5.1); Sodium 137 mmol/L (136-145)
== END ==
PROVIDERS: PCP Physician Assistant; Visit Provider Internal Medicine
DX: I25.10 Atherosclerotic heart disease of native coronary artery without angina pectoris (principal); Z95.5 Presence of coronary angioplasty implant and graft; G47.33 Obstructive sleep apnea (adult) (pediatric); R06.83 Snoring; R40.0 Somnolence; R53.83 Other fatigue
CPT/HCPCS: 36415; 80048; 85025; G0399

== ENCOUNTER 2023-04-26 12:59 | Outpatient (RCR) | payer BC, SELFPAY | END 2023-05-24 10:00 | disposition home or self-care (01) | LOC: PT 12:59 | PROVIDERS: Visit Provider Internal Medicine | DX: I25.10 Atherosclerotic heart disease of native coronary artery without angina pectoris (principal); Z95.5 Presence of coronary angioplasty implant and graft | CPT/HCPCS: 93798 ==

== ENCOUNTER → 2023-09-13 10:21 | Outpatient (CLI) | payer BC, SELFPAY ==
[2023-09-13 11:06] LABS: Basophils # 0.1 K/mm3 (0-0.2); Basophils % 0.9 % (0.1-2.0); Eosinophils # 0.1 K/mm3 (0.0-0.4); Hematocrit 46.5 % (37.0-47.0); Hemoglobin 15.7 g/dL (12.2-16.2); Lymphocytes # 2.6 K/mm3 (0.7-4.5); Lymphocytes % 25.5 % (10-50); Mean Corpuscular HGB Conc 33.9 g/dL (31.8-35.4); Mean Corpuscular Hemoglobin 31.9 pg (27.0-31.2); Mean Corpuscular Volume 94.3 fl (81-99); Mean Platelet Volume 7.4 fl (7.4-10.4); Monocytes # 0.6 K/mm3 (0.1-1.0); Monocytes % 5.6 % (1.7-9.3); Neutrophils # 6.7 K/mm3 (1.8-7.8); Platelet Count 253 K/mm3 (142-424); Red Blood Count 4.93 M/mm3 (4.20-5.40); Red Cell Distribution Width 13.5 % (11.5-17.5); White Blood Count 10.1 K/mm3 (4.8-10.8)
[2023-09-13 11:24] LABS: Alanine Aminotransferase 31 U/L (12-78); Albumin Level 4.4 g/dl (3.5-5.0); Alkaline Phosphatase 103 U/L (38-126); Anion Gap 11.4 mEq/L (5-15); Aspartate Amino Transferase 35 U/L (14-36); Bilirubin,Direct 0.1 mg/dl (0.0-0.4); Bilirubin,Indirect 0.3 mg/dL (0.0-0.9); Bilirubin,Total 0.4 mg/dl (0.2-1.3); Bilirubin,Unconjugated 0.3 mg/dL (0.0-1.1); Blood Urea Nitrogen 12 mg/dl (7-17); Calcium 9.1 mg/dl (8.4-10.2); Carbon Dioxide 28 mmol/L (22.0-30.0); Chloride 102 mmol/L (98-107); Chol/HDL Ratio 2.4 (1-3.5); Cholesterol 146 mg/dl (140-200); Estimated Glomerular Filt Rate 86 ml/min (>60); GFR (African American) 104 ML/MIN (>60); Glucose 101 mg/dl (74-100); HDL Cholesterol 61 mg/dl (40-60); Potassium 4.4 mmoL/L (3.5-5.1); Sodium 137 mmol/L (136-145); Total Protein,Serum 7.2 g/dl (6.3-8.2); Triglycerides 80 mg/dl (30-150); VLDL Cholesterol 16 mg/dL (0-40)
[2023-09-13 11:35] LABS: Direct LDL Cholesterol 74.27 mg/dL (100-129)
[2023-09-13 11:39] LABS: Free T4 (Free Thyroxine) 1.05 ng/dl (0.78-2.19)
[2023-09-13 11:54] LABS: Thyroid Stimulating Hormone 0.87 uIU/mL (0.465-4.68)
== END ==
PROVIDERS: PCP Physician Assistant; Visit Provider Nurse Practitioner
DX: R06.00 Dyspnea, unspecified (principal); I25.10 Atherosclerotic heart disease of native coronary artery without angina pectoris; I11.9 Hypertensive heart disease without heart failure; E11.9 Type 2 diabetes mellitus without complications; E78.5 Hyperlipidemia, unspecified; G47.33 Obstructive sleep apnea (adult) (pediatric); K21.9 Gastro-esophageal reflux disease without esophagitis; F17.200 Nicotine dependence, unspecified, uncomplicated; I63.9 Cerebral infarction, unspecified; Z95.5 Presence of coronary angioplasty implant and graft; Z79.899 Other long term (current) drug therapy
CPT/HCPCS: 36415; 80048; 80061; 80076; 84439; 84443; 85025

== ENCOUNTER 2024-02-13 11:13 | Outpatient (POV) | payer BC, SELFPAY | END 2024-02-13 23:59 | disposition home or self-care (01) | LOC: SC 11:13 | PROVIDERS: PCP Physician Assistant; Visit Provider Dermatology | DX: Z00.00 Encounter for general adult medical examination without abnormal findings (principal) ==

== ENCOUNTER 2024-03-06 09:59 | Outpatient (CLI) | payer BC, SELFPAY ==
[2024-03-06 11:12] LABS: Alanine Aminotransferase 27 U/L (12-78); Albumin Level 4.2 g/dl (3.5-5.0); Alkaline Phosphatase 110 U/L (38-126); Anion Gap 12.7 mEq/L (5-15); Aspartate Amino Transferase 32 U/L (14-36); Bilirubin,Direct 0.1 mg/dl (0.0-0.4); Bilirubin,Indirect 0.4 mg/dL (0.0-0.9); Bilirubin,Total 0.5 mg/dl (0.2-1.3); Bilirubin,Unconjugated 0.4 mg/dL (0.0-1.1); Blood Urea Nitrogen 16 mg/dl (7-17); Calcium 9.8 mg/dl (8.4-10.2); Carbon Dioxide 29 mmol/L (22.0-30.0); Chloride 102 mmol/L (98-107); Cholesterol 130 mg/dl (140-200); Estimated Glomerular Filt Rate 86 ml/min (>60); GFR (African American) 104 ML/MIN (>60); Glucose 90 mg/dl (74-100); HDL Cholesterol 66 mg/dl (40-60); Potassium 4.7 mmoL/L (3.5-5.1); Sodium 139 mmol/L (136-145); Total Protein,Serum 6.9 g/dl (6.3-8.2); Triglycerides 113 mg/dl (30-150); VLDL Cholesterol 23 mg/dL (0-40)
[2024-03-06 11:23] LABS: Direct LDL Cholesterol 60.88 mg/dL (100-129)
[2024-03-06 11:42] LABS: Thyroid Stimulating Hormone 0.98 uIU/mL (0.465-4.68)
== END 2024-03-06 23:59 | disposition home or self-care (01) ==
LOC: LAB 10:01
PROVIDERS: PCP Physician Assistant; Visit Provider Nurse Practitioner
DX: I25.110 Atherosclerotic heart disease of native coronary artery with unstable angina pectoris (principal); E78.5 Hyperlipidemia, unspecified; R00.2 Palpitations; F17.210 Nicotine dependence, cigarettes, uncomplicated
CPT/HCPCS: 36415; 80048; 80061; 80076; 84443

== ENCOUNTER 2024-04-04 09:05 | Outpatient (CLI) | payer BC, SELFPAY ==
[2024-04-04 10:33] LABS: Hemoglobin A1C 5.4 % (4.0-6.0)
== END 2024-04-04 23:59 | disposition home or self-care (01) ==
PROVIDERS: PCP Physician Assistant; Visit Provider Nurse Practitioner
DX: I25.110 Atherosclerotic heart disease of native coronary artery with unstable angina pectoris (principal); E78.5 Hyperlipidemia, unspecified; Z95.5 Presence of coronary angioplasty implant and graft; F17.210 Nicotine dependence, cigarettes, uncomplicated; E66.01 Morbid (severe) obesity due to excess calories; Z13.1 Encounter for screening for diabetes mellitus
CPT/HCPCS: 36415; 83036

== ENCOUNTER 2024-08-05 09:42 | Outpatient (CLI) | payer BC, SELFPAY ==
[2024-08-05 10:20] LABS: Basophils # 0.1 K/mm3 (0-0.2); Basophils % 0.9 % (0.1-2.0); Eosinophils # 0.1 K/mm3 (0.0-0.4); Eosinophils % 1.3 % (0.1-12.0); Hematocrit 42.8 % (37.0-47.0); Hemoglobin 14.7 g/dL (12.2-16.2); Lymphocytes % 19.3 % (10-50); Mean Corpuscular HGB Conc 34.2 g/dL (31.8-35.4); Mean Corpuscular Hemoglobin 30.7 pg (27.0-31.2); Mean Corpuscular Volume 89.7 fl (81-99); Monocytes # 0.5 K/mm3 (0.1-1.0); Neutrophils # 7.6 K/mm3 (1.8-7.8); Neutrophils % 73.5 % (37.0-80.0); Platelet Count 251 K/mm3 (142-424); Red Blood Count 4.77 M/mm3 (4.20-5.40); Red Cell Distribution Width 13.5 % (11.5-17.5); White Blood Count 10.4 K/mm3 (4.8-10.8)
[2024-08-05 10:33] LABS: Albumin Level 4.2 g/dl (3.5-5.0); Chloride 100 mmol/L (98-107); Sodium 133 mmol/L (136-145)
[2024-08-05 10:34] LABS: Potassium 4.6 mmoL/L (3.5-5.1)
[2024-08-05 10:36] LABS: Alanine Aminotransferase 19 U/L (12-78); Alkaline Phosphatase 92 U/L (38-126); Aspartate Amino Transferase 29 U/L (14-36); Bilirubin,Direct 0.2 mg/dl (0.0-0.4); Bilirubin,Indirect 0.3 mg/dL (0.0-0.9); Bilirubin,Total 0.5 mg/dl (0.2-1.3); Bilirubin,Unconjugated 0.4 mg/dL (0.0-1.1); Blood Urea Nitrogen 17 mg/dl (7-17); Calcium 9.2 mg/dl (8.4-10.2); Carbon Dioxide 26 mmol/L (22.0-30.0); Chol/HDL Ratio 3.2 (1-3.5); Cholesterol 120 mg/dl (140-200); Estimated Glomerular Filt Rate 86 ml/min (>60); GFR (African American) 104 ML/MIN (>60); Glucose 104 mg/dl (74-100); HDL Cholesterol 37 mg/dl (40-60); Total Protein,Serum 7.2 g/dl (6.3-8.2); Triglycerides 103 mg/dl (30-150); VLDL Cholesterol 21 mg/dL (0-40)
[2024-08-05 10:49] LABS: Direct LDL Cholesterol 55.92 mg/dL (100-129)
[2024-08-05 10:56] LABS: Anion Gap 13.7 mEq/L (5-15)
[2024-08-05 11:35] LABS: Hemoglobin A1C 5.2 % (4.0-6.0)
== END 2024-08-05 23:59 | disposition home or self-care (01) ==
PROVIDERS: Physician Assistant; PCP Internal Medicine; Visit Provider Nurse Practitioner
DX: Z13.1 Encounter for screening for diabetes mellitus (principal); E78.5 Hyperlipidemia, unspecified; I25.110 Atherosclerotic heart disease of native coronary artery with unstable angina pectoris; R53.83 Other fatigue; Z72.0 Tobacco use
CPT/HCPCS: 36415; 80048; 80061; 80076; 83036; 85025

== ENCOUNTER 2024-11-08 09:06 | Outpatient (CLI) | payer BC, SELFPAY | END 2024-11-08 23:59 | disposition home or self-care (01) | LOC: LAB.DROPOF 11-09 09:00 | PROVIDERS: PCP Obstetrics & Gynecology; Visit Provider Obstetrics & Gynecology | DX: R10.2 Pelvic and perineal pain (principal) | CPT/HCPCS: 87086 ==

== ENCOUNTER 2024-11-11 09:33 | Outpatient (CLI) | payer BC, SELFPAY ==
--- NOTE | 2024-11-11 09:34 | CT_ITS ---
FINAL REPORT TECHNIQUE: Thin-section axial images were obtained of the abdomen and pelvis before and after the administration of IV contrast. Coronal and sagittal images were obtained and reviewed. This study was performed with techniques to keep radiation doses as low as reasonably achievable, (ALARA). Individualized dose reduction techniques using automated exposure control or adjustment of mA and/or kV according to the patient's size were employed. CLINICAL HISTORY: Urogram hematuria ultrasound performed today. COMPARISON: 06/05/2022 FINDINGS: On the pre infusion images, surgical clips are seen in the gallbladder fossa consistent with prior cholecystectomy. There are calcified granulomas in the spleen. There is no evidence of nephrolithiasis. The uterus is present and lies midline. On the post infusion images, the lung bases are clear. The liver parenchyma is homogeneous. The spleen, pancreas, and adrenal glands are unremarkable. There is a horseshoe kidney which enhances in a normal fashion. There is opacification of nondilated pelvic calyceal systems. The urinary bladder is normal in size and configuration. The appendix is normal. There are moderate hypertrophic changes of degenerative disc disease at L5-S1. IMPRESSION: No evidence of stone or obstruction. Horseshoe kidney. Reviewed, Interpreted and Dictated by Dave Rivera MD Transcribed by Aislinn Menon Authenticated and [facility]
--- NOTE | 2024-11-11 09:34 | US_ITS ---
PROCEDURE: US TRANSVAGINAL CLINICAL INDICATION: Abnormal uterine bleeding COMPARISON: CT CT ABDOMEN PELVIS WO/W CON from 11/11/2024 FINDINGS: Transvaginal sonographic images of the pelvis were obtained. UTERUS: 5.4cm x 3.8 cmx 2.5cm anteverted with a combined endometrial thickness of 7.2mm. There is a small calcification within the endometrium. LEFT OVARY: 1.8 cmx1.5cmx1.1cm with a volume of 1.5ml. RIGHT OVARY: 2.4cmx 1.5 cmx1.3cm with a volume of 2.5ml. Both ovaries are seen and appear normal. Doppler flow to both ovaries are seen. There is no fluid in the cul-de-sac. IMPRESSION: 1. Anteverted uterus normal in shape and size. The endometrium is slightly thickened at 7.2 mm. There is a small calcification within the endometrium likely benign. The endometrium has a heterogenous and cystic appearance. Would suggest endometrial sampling. 2. Both ovaries are difficult to visualize but appear atrophic. 3. There is a mass at the vaginal vault that measures 2.8 cm x 1.9 cm x 3.1 cm. This mass contains both solid and cystic components. The ship harbor pilot noted that there appears to be a connection between this mass and the inferior bladder. There appears to be mucosa between the mass in the vagina. 4. Please see the CT findings and these were discussed with the radiologist to compare with the transvaginal ultrasound. Dictated by: Luis Bahena MD 11/11/2024 14:29 Luis Bahena MD in [place] 11/11/2024 14:29
[2024-11-11 10:01] LABS: Blood Urea Nitrogen 11 mg/dl (7-17); Estimated Glomerular Filt Rate 86 ml/min (>60); GFR (African American) 104 ML/MIN (>60)
[2024-11-11] MEDS: SODIUM CHLORIDE 0.9% 10ML SYR (RAD ONLY) 10 ML IV (11:00)
[2024-11-11] MEDS: IOPAMIDOL-370 (76%);100ML BOTTLE 150 ML IV (11:00)
== END 2024-11-11 23:59 | disposition home or self-care (01) ==
LOC: RAD 09:34
PROVIDERS: PCP Nurse Practitioner Family; Visit Provider Obstetrics & Gynecology
DX: N93.9 Abnormal uterine and vaginal bleeding, unspecified (principal)
CPT/HCPCS: 36415; 74178; 76830; 82565; 84520; Q9967

== ENCOUNTER 2024-11-12 12:40 | Outpatient (CLI) | payer BC, SELFPAY ==
[2024-11-13 08:46] LABS: Miscellaneous Test SCANNED IMAGE
== END 2024-11-12 23:59 | disposition home or self-care (01) ==
LOC: LAB 12:40
PROVIDERS: Visit Provider Obstetrics & Gynecology
DX: N95.0 Postmenopausal bleeding (principal)
CPT/HCPCS: 36415; 81500

== ENCOUNTER 2024-11-25 15:01 | Outpatient (CLI) | payer BC, SELFPAY ==
[2024-11-25 15:00] LABS: Microscopic,Cath URINE MICROSCOPIC (MICROSCOPIC)
[2024-11-25 15:13] LABS: Appearance,Urine/Cath CLEAR (Clear); Bilirubin,Cath Negative (Negative); Blood, Urine/Cath Negative (Negative); Color,Urine/Cath YELLOW (Yellow); Glucose,Urine/Cath (UA) Negative (Negative); Ketones,Urine/Cath Negative (Negative); Leukocyte Esterase,Cath Negative (Negative); Nitrate,Cath Negative (Negative); Protein,Urine/Cath Negative (Negative); Specific Gravity, Urine/Cath <= 1.005 (1.005-1.030); Urobilinogen,Cath 0.2 EU/dl (0.2)
== END 2024-11-25 23:59 | disposition home or self-care (01) ==
LOC: LAB.DROPOF 15:01
PROVIDERS: PCP Urology; Visit Provider Urology
DX: R19.00 Intra-abdominal and pelvic swelling, mass and lump, unspecified site (principal); R31.9 Hematuria, unspecified; N32.81 Overactive bladder; N95.2 Postmenopausal atrophic vaginitis
CPT/HCPCS: 81001

== ENCOUNTER 2024-11-28 10:20 | Outpatient (CLI) | payer BC, SELFPAY ==
--- NOTE | 2024-11-28 10:21 | US_ITS ---
FINAL REPORT CLINICAL HISTORY: pelvic mass COMPARISON: None FINDINGS: ULTRASOUND BLADDER WITH POST VOID RESIDUAL Bladder volumes were estimated based on 3 dimensional measurements, pre- and postvoid. Prevoid bladder volume is 194 mls. Bilateral ureteral jets are visualized. No filling defects are noted within the urinary bladder. Postvoid residual is small at 37 mL. The lesion seen on CT scan is not identified on ultrasound of the bladder. IMPRESSION: Estimated bladder volumes as above with small postvoid residual . Lesion seen on CT scan not identified on this exam. Reviewed, Interpreted and Dictated by Pallavi Silver MD Transcribed by Aislinn Menon Authenticated and [facility]
== END 2024-11-28 23:59 | disposition home or self-care (01) ==
LOC: RAD 10:21
PROVIDERS: PCP Physician Assistant; Visit Provider Urology
DX: R19.00 Intra-abdominal and pelvic swelling, mass and lump, unspecified site (principal)
CPT/HCPCS: 76857

== ENCOUNTER 2024-11-29 08:39 | Day surgery (SDC) | payer BC, SELFPAY ==
[2024-11-27 17:13] VITALS: BMI 32.6
[2024-11-29 09:03] VITALS: BP 107/64; PULSE 75; RESP 18; TEMP 36.6; O2SAT 96
[2024-11-29] MEDS: 0.9 % SODIUM CHLORIDE 500 ML 25 ML IV (09:27)
--- NOTE | 2024-11-29 09:30 | P.PCN_ITS ---
[facility] Procedure Note Date: 11/29/24 Time: 09:30 Procedure Note:: Chart review: The patient is troubled with either gross hematuria or vaginal bleeding. She is just not sure about this and it started a few weeks ago. Her CAT scan on 12/03 shows a mass in the anterior vagina that gynecology is currently addressing. The patient has some symptoms of overactive bladder. She is here for cystoscopy because of the pelvic mass. Preop diagnosis: Hematuria/pelvic mass Postop diagnosis: Hematuria/pelvic mass Operative note: The patient was brought to the cystoscopy suite. Urine catheterized culture and sensitivity is pending. She underwent flexible cystoscopy. Her urethra is unremarkable. By digital exam I also feel no periurethral mass today. Urethral diverticulum is often an ellusive diagnosis. There is an amended xray report after my review and US suggesting the urethral diverticulum. Again, at cystocopy I do not see a diverticulum orifice or inflammatory reaction. I suggested a Urethral MRI which has already been ordered. The patient's bladder is [place] pink in color throughout without evidence of bladder stone tumor hemorrhage or infection. I see no bladder indentation from a possible vaginal mass posteriorly. The ureteral orifice are normal bilaterally with clear E flux of urine. The patient tolerated the procedure well.
[2024-11-29 09:40] VITALS: BP 110/70; PULSE 71; RESP 16; TEMP 36.6; O2SAT 96
--- NOTE | 2024-11-29 10:18 | SUR.PHASEII ---
0935- @ bs. Pt to follow up with gynecology. No other new orders received.
[2024-11-29 14:04] LABS: Microscopic, Urine URINE MICROSCOPIC (MICROSCOPIC)
[2024-11-29 14:07] LABS: Appearance,Urine CLEAR (Clear); Bilirubin,Urine Negative (Negative); Blood, Urine Negative (Negative); Color,Urine YELLOW (Yellow); Glucose,Urine (UA) Negative (Negative); Ketones,Urine Negative (Negative); Leukocyte Esterase,Urine Negative (Negative); Nitrate,Urine Negative (Negative); Protein,Urine Negative (Negative); Urobilinogen,Urine 0.2 EU/dl (0.2)
[2024-11-29 14:41] LABS: Bacteria,Urine Trace /lpf; Squamous Epithelial Cell,Urine Occasional #/hpf (0-5)
== END 2024-11-29 09:40 | disposition home or self-care (01) ==
LOC: OUTP 08:40
PROVIDERS: Visit Provider Urology
PROC: 0TJB8ZZ Inspection of Bladder, Via Natural or Artificial Opening Endoscopic (ICD-10-PCS; CPT 52000; principal; 2024-11-29 09:30)
DX: R31.0 Gross hematuria (principal); R19.00 Intra-abdominal and pelvic swelling, mass and lump, unspecified site; N36.1 Urethral diverticulum
CPT/HCPCS: 52000; 81001

== ENCOUNTER 2024-12-10 12:00 | Outpatient (CLI) | payer BC, SELFPAY ==
[2024-12-10 12:36] LABS: Basophils # 0.1 K/mm3 (0-0.2); Basophils % 0.7 % (0.1-2.0); Eosinophils # 0.1 K/mm3 (0.0-0.4); Eosinophils % 1.2 % (0.1-12.0); Hematocrit 40.2 % (37.0-47.0); Hemoglobin 13.4 g/dL (12.2-16.2); Lymphocytes # 2.6 K/mm3 (0.7-4.5); Lymphocytes % 25.4 % (10-50); Mean Corpuscular HGB Conc 33.3 g/dL (31.8-35.4); Mean Corpuscular Volume 89.9 fl (81-99); Mean Platelet Volume 9.1 fl (7.4-10.4); Monocytes # 0.8 K/mm3 (0.1-1.0); Monocytes % 7.2 % (1.7-9.3); Neutrophils # 6.8 K/mm3 (1.8-7.8); Neutrophils % 65.1 % (37.0-80.0); Platelet Count 244 K/mm3 (142-424); Red Blood Count 4.47 M/mm3 (4.20-5.40); Red Cell Distribution Width 13.3 % (11.5-17.5); White Blood Count 10.4 K/mm3 (4.8-10.8)
[2024-12-10 12:48] LABS: Alanine Aminotransferase 23 U/L (12-78); Albumin Level 4.3 g/dl (3.5-5.0); Albumin/Globulin Ratio 1.8 (1.1-1.8); Alkaline Phosphatase 87 U/L (38-126); Aspartate Amino Transferase 27 U/L (14-36); Bilirubin,Total 0.4 mg/dl (0.2-1.3); Blood Urea Nitrogen 12 mg/dl (7-17); Calcium 9.4 mg/dl (8.4-10.2); Carbon Dioxide 24 mmol/L (22.0-30.0); Chloride 106 mmol/L (98-107); Estimated Glomerular Filt Rate 86 ml/min (>60); GFR (African American) 104 ML/MIN (>60); Globulin 2.4 g/dL (1.3-3.2); Glucose 85 mg/dl (74-100); Sodium 137 mmol/L (136-145); Total Protein,Serum 6.7 g/dl (6.3-8.2)
[2024-12-10 13:15] LABS: HCG,Quantitative < 2 mIU/ml (0-5.42)
== END 2024-12-10 23:59 | disposition home or self-care (01) ==
LOC: PREOP 12:02
PROVIDERS: PCP Physician Assistant; Visit Provider Obstetrics & Gynecology
DX: Z01.812 Encounter for preprocedural laboratory examination (principal)
CPT/HCPCS: 80053; 84702; 85025

== ENCOUNTER 2024-12-11 06:17 | Day surgery (SDC) | payer BC, SELFPAY ==
[2024-12-10 13:05] VITALS: BMI 33.0
[2024-12-11] VITALS (10 sets, daily range): BP systolic 110–143; BP diastolic 56–86; PULSE 59–76; RESP 12–18; TEMP 36.3–36.6; O2SAT 93–98
[2024-12-11] MEDS: LACTATED RINGERS 1000ML 1,000 ML 25 ML IV (06:52)
--- NOTE | 2024-12-11 07:23 | EXP.ANES.CKL ---
[facility] Disclaimer: The information contained in this section may have been updated after the patient was seen, as this information can be updated by other users. Medical History Encounter for pre-operative cardiovascular clearance Screening for diabetes mellitus TAMI (obstructive sleep apnea) Fatigue Daytime somnolence Snoring CAD (coronary artery disease) HLD (hyperlipidemia) GERD (gastroesophageal reflux disease) ST elevation myocardial infarction (STEMI) Body mass index (BMI) of 40.1 to 44.9 in adult Nicotine dependence Obesity Surgical History History of laparoscopy History of surgical removal of ganglion cyst History of tonsillectomy History of foot surgery History of laparoscopic cholecystectomy History of coronary artery stent placement Family History Other Family history of cardiomyopathy Family history of colon cancer Family history of diabetes mellitus (DM) Family history of heart disease Family history of hypertension Social History (Updated 12/10/24 @ 12:15 by Kj Reaves RN) Smoking Status: Current every day smoker tobacco type: cigarettes packs per day: 1 alcohol intake: never substance use type: denies use current occupational status: employed and retired Travel in the last 8 weeks: Inside the [place] household members: spouse Have you lived/traveled outside US in past 30 days?: No Contact w/someone who lives/traveled outside US past 30 days?: No Exposure to someone with infectious disease in past 14 days?: No Do you have a fever (greater than 100.4 F or 38 C)?: No Have you tested positive for COVID-19: No Exposed to someone with COVID-19 in past 14 days?: No Do you have a sore throat?: No Do you have a cough?: No Do you have any weakness?: No Do you have any diarrhea?: No Are you experiencing any unusual bleeding?: No Do you have any muscle aches/pain?: No Do you have any abdominal pain?: No Are you experiencing loss of taste or smell?: No [facility] Anesthesia Checklist Patient Identification Patient Identification: Arm Band, Family and Verbal (Name & ) Structural Data Admitted From: Home Planned Operative Procedure/s: Hysteroscopy, D&C, Myosure Consent for Planned Operative Procedure(s) Verified: Yes Verified Documents: Surgical Consent and History and Physical NPO Status Verified Time NPO: 20:00 Chart Verification Results Verified: CBC, BMP, ECG, Chest Xray and HCG Additional verifications Patient : No Anesthesia Reactions: No Hx Blood Transfusions: No Blood Transfusion Reaction: No Cardiovascular Assessment Heart Sounds: S1 & S2 Pulse Rhythm: Irregular Peripheral Edema: No Airway Assessment Mallampati Score:: Class II C-Spine Mobility Assessed: Yes (FROM demonstrated) TMJ Mobility Assessed: Yes Dentition: Good Dentition (Top front capped. Nothing loose per pt. ) Neurological Assessment Level of Consciousness: Awake, Alert, Appropriate and Follows Commands Hx Seizures: No Numbness or tingling in extremities: No Anesthesia Plan Anesthesia Risk discussed: Yes Anesthesia Plan: Verified ASA Class: III Anesthesia Type: General
[2024-12-11] MEDS: SODIUM CHLORIDE IRRIG SOLUTION 3,000 ML 3000 ML IR (07:42)
--- NOTE | 2024-12-11 08:05 | P.PNANES_ITS ---
[facility] Anesthesia Record Part I Anesthesia Record I Intake, IV Amount: 300 Hydration: Adequate Estimated blood loss (mL): 25 Urine output (mL): 20 Blood Products used (#): none Blood Pressure: 129/76 SaO2: 98 Pulse Rate: 76 Airway Patency: Patent Respiratory Rate: 12 Temperature: 97.3 F Patient is:: Drowsy and Stable Stable to PACU at:: 08:05
--- NOTE | 2024-12-11 08:49 | EXP.OP.NOTE ---
Date of procedure: 12/11/24 Pre-op Diagnosis:: 1. Menopausal bleeding 2. Thickened endometrial stripe Post-op Diagnosis:: 1. Menopausal bleeding 2. Thickened endometrial stripe Procedure performed:: Hysteroscopy, dilation, and MyoSure curettage Surgeon:: Guera Prado DO CARDIAC/VASCULAR SONOGRAPHER:: Genia Méndez Anesthesia: GETA Estimated blood loss (mL): 5 Operative findings:: Findings: -EUA revealed an 8-week anteverted uterus with regular contour. no significant prolapse or support defects noted. -Hysteroscopy revealed 1 area of detached endometrial tissue. This did not appear to be a polyp and may be present only secondary to trauma from cervical dilation. The ostia were visualized in their entirety. An adequate sample was obtained. Operative note:: The patient was taken back to the OR where general anesthesia was obtained.? She was placed in the dorsal lithotomy position using yellow fin stirrups and sterilely prepped and draped in the usual fashion.? An in and out catheter was used to drain her bladder.? A timeout was performed.? A weighted speculum was used to visualize this cervix, a single-tooth tenaculum was applied to the anterior lip of the cervix. The cervix was only slightly dilated to allow entry to the ectocervix and hydrodisection was used to get the scope the rest of the way into the cavity. The hysterscope was inserted and above-described findings were noted. Overall the endometrium was very thin and atrophic. There was 1 small area that was either an endometrial polyp or trauma from cervical dilation that was easily removed with the MyoSure. Images were obtained of the cavity. Decision was made to proceed with the MyoSure for curettage. Device set up, primed and zeroed. The device was used to obtain an adequate endometrial sample At the conclusion of the procedure there was a fluid deficit of less than 50 mLs. Total myosure cutting time was less than 30 seconds. Following complete removal of the polyps the MyoSure hysteroscope was removed.? A #2 sharp curette was introduced through the cervical os and gently advanced to the fundus.? The endometrial cavity was sharply curetted 360 degrees.? Scant endometrial tissue noted on the Telfa from sharp curettage. Endometrial curettings were collected on a Telfa pad, passed off the operative field and sent to pathology for further evaluation.? The single-tooth tenaculum was removed and hemostasis was noted at the tenaculum sites.? All instruments were removed from the vagina.? All counts were correct, per nursing.? This concluded the procedure, the patient was awakened from anesthesia, and transferred to the PACU in stable condition. Condition: stable Disposition: PACU Specimens:: Endometrial curettings Complications:: None
--- NOTE | 2024-12-11 10:19 | EXP.ANES.II ---
[facility] Anesthesia Record Part II Anesthesia Record Part II Discharge Time: 08:30 Destination: Surgical Day Care (OP Surgery) PACU nurse assessment reviewed?: Yes Patient Condition:: Good Anesthesia Complications:: None Swallowing reflex intact?: Yes Airway Patency: Patent Cyanosis?: No Blood Pressure: 127/86 SaO2: 96 Respiratory Rate: 16 Pulse Rate: 65 Temperature: 97.3 F Mental Status: Alert & Oriented Pain level:: 0 Nausea and/or vomitting:: None Intake, IV Amount: 300 Hydration: Adequate
== END 2024-12-11 09:10 | disposition home or self-care (01) ==
PROVIDERS: PCP Internal Medicine; Visit Provider Obstetrics & Gynecology
PROC: 0UDB8ZZ Extraction of Endometrium, Via Natural or Artificial Opening Endoscopic (ICD-10-PCS; CPT 58558; principal; 2024-12-11 07:30)
DX: N93.9 Abnormal uterine and vaginal bleeding, unspecified (principal); R93.89 Abnormal findings on diagnostic imaging of other specified body structures
CPT/HCPCS: 58558; J1100; J1885; J2250; J2405; J3010; J7120

== ENCOUNTER 2025-02-13 16:01 | Outpatient (CLI) | payer BC, SELFPAY ==
--- NOTE | 2025-02-13 16:15 | MM_ITS ---
PROCEDURE INFORMATION: Exam: MG Bilateral Screening 3D Mammography Exam date and time: 02/13/2025 4:10 PM Age: 59 years old Clinical indication: Screening examination TECHNIQUE: Imaging protocol: Bilateral Screening tomosynthesis and 2D mammography including computer-aided detection (CAD) when performed. COMPARISON: 1. MG MM DIG SCREENING MAMM BI W/CAD 10/21/2020 1:30 PM 2. US - BR US BREAST-RT COMPLETE W/AXILLA 07/29/2015 4:54 PM FINDINGS: MAMMOGRAPHY: Breast composition: The breasts are almost entirely fatty. Mass: None. Architectural distortion: None. Calcifications: No suspicious calcifications. Asymmetric density: None. Skin thickening: None. Axillary adenopathy: None. IMPRESSION: No mammographic evidence of malignancy. Annual screening is recommended unless otherwise clinically indicated. ASSESSMENT: BI-RADS Category 1: Negative.
== END 2025-02-13 23:59 | disposition home or self-care (01) ==
LOC: RAD 16:02
PROVIDERS: PCP Internal Medicine; Visit Provider Obstetrics & Gynecology
DX: Z12.31 Encounter for screening mammogram for malignant neoplasm of breast (principal)
CPT/HCPCS: 77063; 77067

== ENCOUNTER 2025-08-20 09:00 | Outpatient (CLI) | payer BC, SELFPAY ==
--- OUTSIDE RECORDS SUMMARY | 2025-08-20 09:06 | XMS_ITS | Clinical Summary ---
Author Organization [facility] Address [address] [place] [address] [place] [address] Care Team Providers Care Natural Resources Instructor Name Role Phone Unavailable Primary Care Provider Unavailabl e Social History Tobacco Use Types Packs/Day Years Used Date Smoking Tobacco: Never Assessed Comments Unknown Sex and Gender Information Value Date Recorded Sex Assigned at Not on file Legal Sex Female 9:50 AM EDT Gender Identity Not on file Sexual Orientation Not on file Plan of Treatment Health Maintenance Due Date Last Done Comments DTap,Tdap,and Td (1 - Tdap) 1977 Pap Screening 1987 Mammogram Screening 2006 Colonoscopy 2011 Pneumococcal 50+ (1 of 1 - PCV) 2016 Shingrix (#1) 2016 Influenza Vaccine (#1) 2025 RSV Vaccine (60+ or ) (1 - 1-dose 75+ series) 2041 HPV Aged Out No longer eligi ble based on patient's age to complete this topic Meningococcal conjugate osbaldo nt 4 (MCV4) Aged Out No longer eligible b ased on patient's age to complete this topic RSV Immunization (<20 months) Aged Out No longer eligible based on patient's age to complete this topic Insurance [employer] OTHERS NOT MEDICARE
--- OUTSIDE RECORDS SUMMARY | 2025-08-20 09:06 | XMS_ITS | Clinical Summary ---
Author Organization [facility] ([facility] Address [address] [place] [address] Care Team Providers Care Staffing Program Manager Name Role Phone Unavailable Primary Care Provider Unavailabl e Social History Tobacco Use Types Packs/Day Years Used Date Smoking Tobacco: Never Assessed Comments Unknown Sex and Gender Information Value Date Recorded Sex Assigned at Not on file Legal Sex Female 9:27 AM EDT Gender Identity Not on file Sexual Orientation Not on file Plan of Treatment Not on file
--- OUTSIDE RECORDS SUMMARY | 2025-08-20 09:06 | XMS_ITS | Clinical Summary ---
Author Organization [facility] Address [address] [place] [address] Care Team Providers Care Dock Loader Name Role Phone Unavailable Primary Care Provider Unavailabl e Social History Tobacco Use Types Packs/Day Years Used Date Smoking Tobacco: Never Assessed Comments Unknown Sex and Gender Information Value Date Recorded Sex Assigned at Not on file Legal Sex Female 7:57 AM EDT Gender Identity Not on file Sexual Orientation Not on file Last Filed Vital Signs Vital Sign Reading Time Taken Comments Blood Pressure 131/87 04/18/2023 8:02 AM EDT Pulse 85 04/18/2023 8:02 AM EDT Temperature - - Respiratory Rate - - Oxygen Saturation - - Inhaled Oxygen Concentration - - Weight 113 kg (250 lb) 04/18/2023 8:02 AM EDT Height 172.7 cm (5' 8 ) 04/18/2023 8:02 AM EDT Body Mass Index 38.01 04/18/2023 8:02 AM EDT Plan of Treatment Health Maintenance Due Date Last Done Comments [facility]-Depression Screening 1966 [facility]-Infant/Child/Adol SDOH Screenings 1966 [facility]- SDOH Screenings 1984 [facility]-Adult SDOH Screenings 1984 [facility]-Hepatitis B Vaccines (1 of 3 - 19+ 3-dose series) 1985 [facility]-Pap Smear 1987 [facility]-Cervical Cancer Screening 1996 [facility]-HPV/Cotest 1996 CT Colonography 2011 Colonoscopy 2011 FIT-DNA 2011 FIT 2011 FOBT 2011 Sigmoidoscopy 2011 [facility]-Colorectal Cancer Screening 2011 [facility]-Pneumococcal Vaccine: 50 + Years (1 of 1 - PCV) 2016 [facility]-Zoster Vaccines (1 of 2) 2016 [facility]-DTaP,Tdap,and Td Vaccine s (2 - Td or Tdap) 12/31/2022 12/31/2012 [id number] Vaccine (4 - 2024- season) 2025 09/27/2021, 11/17/2020, 10/15/2020 [facility]-Influenza Vaccine (#1) 2025 08/03/2021 HPV Vaccines Aged Out No longer eligi ble based on patient's age to complete this topic [facility]-HIB Vaccines Aged Out No longer e ligible based on patient's age to complete this topic [facility]-Hepatitis A Vaccines Aged Out No longer eligible based on patient's age to complete this topic [facility]-IPV Vaccines Aged Out No longer e ligible based on patient's age to complete this topic [facility]-Rotavirus Vaccines Aged Out No lo nger eligible based on [id number] [employer]
--- OUTSIDE RECORDS SUMMARY | 2025-08-20 09:06 | XMS_ITS | Encounter Summary ---
Author Organization [facility] Address [facility] [place] [address] Phone Care Team Providers Care Exhauster Name Role Phone Unavailable Primary Care Provider Unavailabl e Reason for Referral * MRI/CAT Scan (Routine) - Pending Review Specialty Diagnoses / Procedures Referred By Contac t Referred To Contact Radiology Diagnoses Bladder mass Procedures CT ABDOMEN PELVIS UROGRAM W WO CONTRAST Other, Physician John MD Other Referral ID Status Reason Start Date Expiration Date Visits Requested Visits Authorized Pending Review Specialty Services Required 12/20/2024 12/20/2025 1 1 Encounter Details Date Type Department Care Team (Late st Contact Info) Description 12/20/2024 Orders Only [facility] Central Scheduling [address] [place], [place] [address] Watson, Physician John MD Other Bladder mass (Primary Dx) Social History Tobacco Use Types Packs/Day Years Used Date Smoking Tobacco: Never Assessed Comments Unknown Sex and Gender Information Value Date Recorded Sex Assigned at Not on file Legal Sex Female 9:50 AM EDT Gender Identity Not on file Sexual Orientation Not on file documented as of this encounter Plan of Treatment Scheduled Orders Name Type Priority Associated Diagnoses Orde r Schedule CT ABDOMEN PELVIS UROGRAM W WO CONTRAST Imaging Routine Bladder mass Expected: 12/20/2024, Expires: 12/20/2025 documented as of this encounter Visit Diagnoses Diagnosis Bladder mass- Primary documented in this encounter
[2025-08-20 09:51] LABS: Hematocrit 42.2 % (37.0-47.0); Hemoglobin 13.9 g/dL (12.2-16.2); Immature Granulocytes % 0.3 %; Mean Corpuscular HGB Conc 32.9 g/dL (31.8-35.4); Mean Corpuscular Hemoglobin 30.6 pg (27.0-31.2); Mean Corpuscular Volume 93.0 fl (81-99); Nucleated Red Blood Cells % 0 %; Platelet Count 233 K/mm3 (142-424); Red Blood Count 4.54 M/mm3 (4.20-5.40); Red Cell Distribution Width-SD 46.1 fL; White Blood Count 8.8 K/mm3 (4.8-10.8)
[2025-08-20 10:16] LABS: Alanine Aminotransferase 21 U/L (12-78); Albumin Level 4.0 g/dl (3.5-5.0); Alkaline Phosphatase 88 U/L (38-126); Anion Gap 9.1 mEq/L (5-15); Aspartate Amino Transferase 29 U/L (14-36); Bilirubin,Direct 0.2 mg/dl (0.0-0.4); Bilirubin,Indirect 0.3 mg/dL (0.0-0.9); Bilirubin,Total 0.5 mg/dl (0.2-1.3); Bilirubin,Unconjugated 0.3 mg/dL (0.0-1.1); Blood Urea Nitrogen 14 mg/dl (7-17); Calcium 9.4 mg/dl (8.4-10.2); Carbon Dioxide 25 mmol/L (22.0-30.0); Chloride 104 mmol/L (98-107); Cholesterol 120 mg/dl (140-200); Creatinine,Serum 0.70 mg/dl (0.52-1.04); Estimated Glomerular Filt Rate 86 ml/min (>60); GFR (African American) 104 ML/MIN (>60); Glucose 75 mg/dl (74-100); HDL Cholesterol 56 mg/dl (40-60); Magnesium 1.8 mg/dl (1.6-2.3); Potassium 4.1 mmoL/L (3.5-5.1); Sodium 134 mmol/L (136-145); Total Protein,Serum 6.4 g/dl (6.3-8.2); Triglycerides 72 mg/dl (30-150)
[2025-08-20 10:31] LABS: Free T4 (Free Thyroxine) 1.00 ng/dl (0.78-2.19)
[2025-08-20 11:29] LABS: Thyroid Stimulating Hormone 0.66 uIU/mL (0.465-4.68)
[2025-08-20 11:38] LABS: Hemoglobin A1C 5.2 % (4.0-6.0)
== END 2025-08-20 23:59 | disposition home or self-care (01) ==
LOC: LAB 09:01
PROVIDERS: PCP Internal Medicine; Visit Provider Nurse Practitioner
DX: I49.1 Atrial premature depolarization (principal); I49.3 Ventricular premature depolarization; I25.110 Atherosclerotic heart disease of native coronary artery with unstable angina pectoris; R73.09 Other abnormal glucose; E78.5 Hyperlipidemia, unspecified
CPT/HCPCS: 36415; 80048; 80061; 80076; 83036; 83735; 84439; 84443; 85025; 93270